=== PATIENT | female | born 1930 | race Caucasian/White ===

== ENCOUNTER 2019-07-03 15:11 | Inpatient (IN) | payer MEDICARE ==
[2019-07-03] MEDS: Atorvastatin Calcium 10 MG TAB PO SCH (20:37)
[2019-07-03] MEDS: cloNIDine 0.1 MG TAB PO SCH (20:37)
[2019-07-03] MEDS: Carvedilol 6.25 MG TAB PO SCH (20:37)
[2019-07-03] MEDS: Acetaminophen 325 MG TAB PO PRN (20:37)
[2019-07-04] MEDS: Acetaminophen 325 MG TAB PO PRN (02:56)
[2019-07-04 05:35] LABS: #Basophils 0.1 thou/uL (0.0-0.2); #Eosinphils 0.4 thou/uL (0.0-0.7); #Lymphocytes 1.5 thou/uL (1.20-3.40); #Monocytes 1.5 thou/uL (0.11-0.59); #Neutrophils 8.6 thou/uL (1.40-6.50); %Basophils 0.6 % (0.0-1.0); %Eosinophils 3.2 % (0.0-10.0); %Lymphocytes 12.3 % (21.0-51.0); %Monocytes 12.2 % (0.0-10.0); %Neutrophils 71.7 % (42.0-75.0); Hemoglobin 8.5 g/dL (12.0-16.0); Mean Corpuscular Hemoglobin 27.6 pg (27.0-31.0); Mean Corpuscular Volume 89.2 fL (78.0-98.0); Mean Platelet Volume 7.2 fL (7.4-10.4); Platelet Count 249 thou/uL (130-400); RBC Distribution Width 14.1 % (11.5-14.5); Red Blood Cell (RBC) Count 3.08 mill/uL (4.20-5.40)
[2019-07-04] MEDS: HYDROcodone/Acetaminophen 5/325 mg Tablet PO PRN ×4 (05:44→22:03)
[2019-07-04 05:49] LABS: ALT (SGPT) 13 U/L (8-55); AST (SGOT) 29 U/L (5-34); Albumin 2.8 g/dL (3.4-4.8); Alkaline Phosphatase 78 U/L (40-110); Anion Gap 13 mmol/L (10-20); BUN (Urea Nitrogen) 37 mg/dL (9.8-20.1); Bilirubin, Total 0.8 mg/dL (0.2-1.2); Calc. Creatinine Clearance 27 mL/min (70-130); Calcium 8.8 mg/dL (7.8-10.44); Carbon Dioxide 27 mmol/L (23-31); Chloride 100 mmol/L (98-107); Estimated GFR-MDRD 34; Globulin 2.8 g/dL (2.4-3.5); Glucose 108 mg/dL (83-110); Potassium 4.5 mmol/L (3.5-5.1); Protein, Total 5.6 g/dL (6.0-8.3); Sodium 135 mmol/L (136-145)
[2019-07-04] MEDS ORDERED: Levothyroxine Sodium 112 MCG TAB PO SCH (06:00)
[2019-07-04] MEDS ORDERED: Levothyroxine Sodium 25 MCG TAB PO SCH (06:00)
[2019-07-04] MEDS ORDERED: POLY IRON PO SCH (09:00)
[2019-07-04] MEDS: Calcium Carbonate 500 MG TAB PO SCH (09:30)
[2019-07-04] MEDS: Estradiol 1 MG TAB PO SCH (09:30)
[2019-07-04] MEDS: Carvedilol 6.25 MG TAB PO SCH ×3 (09:30→20:50)
[2019-07-04] MEDS: Senokot S 8.6-50 MG TAB PO SCH (09:31)
[2019-07-04] MEDS: Lisinopril 20 MG TAB PO SCH (09:32)
--- NOTE | 2019-07-04 11:48 | HP ---
Admitted to [facility] on the afternoon of 07/03/2019. CHIEF COMPLAINT: Weak following a fracture of her right hip and repair. HISTORY OF PRESENT ILLNESS: The patient is an 88-year-old white female, who resides at home with her granddaughter. She has been independent of her ADLs, but assisted by the granddaughter with medications and instrumental ADLs. The patient has a history of congestive heart failure, chronic atrial fibrillation, hypertension, and hypothyroidism. She is ambulatory prior to her recent fall. The patient had a fall at home with no loss of consciousness on 06/29/2019. She sustained a right subtrochanteric fracture of the hip and a left distal radial fracture, Colles type. The patient was admitted to the [facility]. On 2019, she underwent open reduction and internal fixation of the right hip fracture using a gamma nail and intramedullary rosalina. She also underwent a closed treatment of the left distal radial fracture by Dr. Maikel Wong. The patient's postop course has been unremarkable. She has been up in a wheelchair, but has not been ambulating. Her orthopedic surgeon said that she could weightbear as tolerated with right lower extremity and she is due to see Dr. Wong in followup. The patient was transferred to [facility] for purpose of physical therapy and occupational therapy on the late afternoon of 07/03/2019. The patient was seen early on the morning of 07/04/2019. She was sitting up in a wheelchair, eating her breakfast and she was able to tell me that she had had a fall and broke her hip and left arm. She knew she was in [place]. During the night, she had been given Tylenol for pain in that right hip, but it just did not control this. She had hydrocodone and acetaminophen 5/325 given, which she said worked well. PAST HISTORY: Hospitalized at [facility] from 2019 until 07/03/2019 for fall with subtrochanteric fracture of the right hip and closed fracture of the distal left radius, for which she underwent open reduction and internal fixation of the right hip, and closed treatment and casting of the left radial fracture. 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 The patient has had a pacemaker placed, cataract extraction and intraocular lens placement, previous fracture of the left hip and repair, hysterectomy with bilateral salpingo-oophorectomy. PRESENT MEDICINES: 1. Acetaminophen 325 mg two every 4 hours as needed. 2. Senokot-S one daily. 3. Atorvastatin 10 mg daily. 4. Os-Suman 500 mg daily. 5. Carvedilol 12.5 mg b.i.d., held if blood pressure systolic less than 100. 6. Clonidine 0.1 mg at night. 7. Pradaxa 75 mg b.i.d. 8. Estradiol 2 mg daily. 9. Levothyroxine 137 mcg daily. 10. Lisinopril 20 mg daily. 11. Pantoprazole 40 mg daily. 12. Vitamin C 250 mg daily. 13. Poly-Iron 150 Forte daily. ALLERGIES: IODINE. REVIEW OF SYSTEMS: GENERAL: The patient said she has not had any recent fever. She has had no change in her weight. HEAD AND NECK: No complaints, but blind in the left eye. PULMONARY: No complaint. CARDIOVASCULAR: No chest pain. GI: No nausea or vomiting. Bowels are moving fine. : No complaints. ADLS: Prior to her fall, the patient said she was able to manage her ADLs independently. HABITS: Alcohol, none. Tobacco, none. SOCIAL HISTORY: The patient lives with her granddaughter. The patient is a . PHYSICAL EXAMINATION: GENERAL: Shows a pleasant, 88-year-old, white female, who is sitting up in a wheelchair, eating her breakfast. She is alert, but sleepy and seemed to answer questions appropriately, knew she was in [facility]. VITAL SIGNS: Show a temperature of 97.7, pulse 62, respirations 20, O2 saturation 97% on room air, blood pressure 117/53. Her weight is 143. HEENT: Head, normocephalic. Eyes, pupils are round. She has no vision in the left eye. Sclerae are nonicteric. Ears, TMs are obscured by cerumen. Nose, normal. Mouth and throat, poor dentition. Mucous membranes are moist. NECK: Carotids have irregularly irregular rhythm. LUNGS: Clear. HEART: Irregularly irregular rhythm. CHEST: There is a pacemaker in the left upper anterior chest ABDOMEN: Soft. No organomegaly nor areas of tenderness. EXTREMITIES: No edema. The patient has a bandage over the right hip and distal lateral right upper leg that are dry. There is no drainage. The left wrist has a fiberglass cast, fits appropriately. There is no edema in the fingers. NEUROLOGIC: The patient is alert. Knows she is in the hospital, knows who she is , and knows her granddaughter takes care of her. She has generalized weakness with increase in the right lower extremity due to the fracture and some difficulty with the left arm due to the cast. Therapist said that she was a full assist with transfer from bed to the wheelchair. IMPRESSION: 1. Generalized weakness: a. Following a fall resulting in a right hip fracture and repair, and fracture of the left radius, for which she has a cast on. b. Prior to her fall, she was independent of her ADLs. 2. Subtrochanteric fracture of the right hip secondary to a fall on 06/28: a. Status post open reduction and internal fixation 06/29. b. Doing well, presently nonambulatory as of 07/03. 3. Closed fracture of the left distal radius: a. Secondary to a fall on 06/28. b. Managed in a fiberglass cast. 4. Chronic atrial fibrillation: a. On anticoagulant with Pradaxa. 5. Status post pacemaker placement. 6. History of congestive heart failure: a. No evidence of acute congestive failure as of 07/03. 7. Coronary artery disease: a. Presently asymptomatic. 8. Hypertension, controlled. 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 10. Anemia: a. Hemoglobin 8.5. Some of this is secondary to her recent fracture and surgical repair. 11. Hypothyroidism: a. TSH 10.3 as of 07/04/2019. PLAN: The patient has been admitted to [facility] for PT and OT in an effort to try to improve her general strength, her ability to ambulate, and general functional capability. Prior to her fall, she apparently was independent of her ADLs. The patient has eliud in the incisions on the right hip that will need to stay in 10 to 14 days. She will need to see Dr. Wong, her orthopedic surgeon in followup. Presently, she is allowed weightbearing as tolerated on that right hip. We will continue her routine medications. Her labs today showed a hemoglobin and hematocrit of 8.5 and 27.5, white cell count 12,000, with 72% segs, 12% lymphocytes, and platelet count of 249,000. Sodium 135, potassium 4.5, BUN 37, creatinine 1.45, with GFR of 34. TSH of 10.3. We will increase the patient's thyroid medicine to 150 mcg daily. CODE STATUS: Full code. Job ID: [id number] MTDD
[2019-07-04] MEDS: Atorvastatin Calcium 10 MG TAB PO SCH (20:50)
[2019-07-04] MEDS: cloNIDine 0.1 MG TAB PO SCH (20:50)
[2019-07-05] MEDS: HYDROcodone/Acetaminophen 5/325 mg Tablet PO PRN ×4 (02:26→21:38)
[2019-07-05] MEDS ORDERED: Levothyroxine Sodium 125 MCG TAB PO SCH (06:00)
[2019-07-05] MEDS: Levothyroxine Sodium 75 MCG TAB PO SCH (06:04)
[2019-07-05] MEDS: Calcium Carbonate 500 MG TAB PO SCH (09:14)
[2019-07-05] MEDS: Estradiol 1 MG TAB PO SCH (09:15)
[2019-07-05] MEDS: Carvedilol 6.25 MG TAB PO SCH ×2 (09:15→21:37)
[2019-07-05] MEDS: Senokot S 8.6-50 MG TAB PO SCH (09:16)
[2019-07-05] MEDS: Lisinopril 20 MG TAB PO SCH (09:16)
[2019-07-05 14:57] LABS: Bilirubin Negative (Negative); Blood, Urine Negative (Negative); Clarity Clear (Clear); Glucose, Urine (Dipstick) Negative (Negative); Leukocyte Negative (Negative); Nitrite Negative (Negative); Protein, Urine (Dipstick) Negative (Neg-Trace); Urobilinogen 0.2 mg/dL (Less than 2)
[2019-07-05 14:58] LABS: Urine Culture Reflex No No
[2019-07-05 15:07] LABS: RBC/HPF 0-3 HPF (0-3); WBC/HPF 0-3 HPF (0-3)
[2019-07-05 15:08] LABS: Bacteria/HPF Rare-Few HPF (None Seen)
[2019-07-05] MEDS ORDERED: Silver Sulfadiazine 1% Cream 50 GM TUBE TP PRN (19:42)
[2019-07-05] MEDS ORDERED: Mupirocin 2% Ointment 22 GM Tube TOP PRN (20:57)
[2019-07-05] MEDS ORDERED: Silver Sulfadiazine 1% Cream 50 GM TUBE TP SCH (21:00)
[2019-07-05] MEDS: Atorvastatin Calcium 10 MG TAB PO SCH (21:36)
[2019-07-05] MEDS: cloNIDine 0.1 MG TAB PO SCH (21:37)
[2019-07-05] MEDS: Mupirocin 2% Ointment 22 GM Tube TOP SCH (21:37)
[2019-07-06] MEDS: HYDROcodone/Acetaminophen 5/325 mg Tablet PO PRN ×4 (02:10→20:31)
[2019-07-06] MEDS: Levothyroxine Sodium 75 MCG TAB PO SCH (06:08)
[2019-07-06 06:12] LABS: Band 4 % (5-11); Eosinophils 5 % (0-10); Hypochromia SLIGHT = 6-15 cells (100X) (0-5/hpf); Lymphocytes 11 % (21-51); MDiff Complete? YES; Mean Corpuscular HGB CONC 31.3 g/dL (32.0-36.0); Mean Corpuscular Hemoglobin 28.2 pg (27.0-31.0); Mean Corpuscular Volume 90.1 fL (78.0-98.0); Mean Platelet Volume 6.8 fL (7.4-10.4); Monocytes 14 % (0-10); Neutrophil 66 % (42-75); Platelet Count 284 thou/uL (130-400); Platelet Morphology Comment Appears Adequate; RBC Distribution Width 14.5 % (11.5-14.5); Red Blood Cell (RBC) Count 2.82 mill/uL (4.20-5.40); Small Platelets SLIGHT; White Blood Cell (WBC) Count 12.4 thou/uL (4.8-10.8)
--- NOTE | 2019-07-06 07:03 | PRG ---
DATE OF SERVICE: 07/05/2019 SUBJECTIVE: The patient is sitting up in bed. She has finished her breakfast and she has been feeling pretty good. She at times has some pain, but the hydrocodone/acetaminophen is controlling this very well. OBJECTIVE: GENERAL: The patient is sitting up in bed, alert, talkative, smiling, appears comfortable, in no distress. VITAL SIGNS: Her vital signs show a temperature of 96.2, pulse 70, respirations 16, pulse is 70, blood pressure 117/53, and O2 saturation 97% on room air. LUNGS: Her lungs are clear. HEART: Has an irregularly irregular rhythm. EXTREMITIES: No edema. Dressings over the incisions, over the right hip and over the right lateral distal upper leg are dry. There is a dressing over a blistered area that had occurred in the right groin, but there is no drainage or surrounding redness. ASSESSMENT: 1. Generalized weakness. a. Following a fall resulting in a right hip fracture and repair and fracture of the left radius for which she is wearing a cast, that occurred on 06/28. b. Prior to her fall, she was independent of her ADLs. c. Improved, tolerating sitting up in bed and in bedside chair as of 07/04. 2. Subtrochanteric fracture of the right hip secondary to a fall on 06/28. a. Status post open reduction and internal fixation on 06/30/2019. b. Doing well as of 07/04. Still not ambulatory. 3. Closed fracture of the left distal radius. a. Secondary to a fall on 06/28. b. Managed in fiberglass cast. 4. Chronic atrial fibrillation. a. On chronic anticoagulation with Pradaxa. 5. Status post pacemaker placement. 6. History of congestive heart failure. a. No evidence of acute congestive heart failure as of 07/05/2019. 7. Coronary artery disease. a. Presently asymptomatic. 8. Hypertension. 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 10. Anemia. a. Hemoglobin 8.5 on 07/04/2019, secondary to recent fracture and surgical repair. 11. Hypothyroidism. PLAN: Continue present care. Continue PT and OT. Job ID: [id number] MTDD
[2019-07-06] MEDS ORDERED: Silver Sulfadiazine 1% Cream 50 GM TUBE TP SCH (09:00)
[2019-07-06] MEDS: Lisinopril 20 MG TAB PO SCH (09:38)
[2019-07-06] MEDS: Senokot S 8.6-50 MG TAB PO SCH (09:38)
[2019-07-06] MEDS: Estradiol 1 MG TAB PO SCH (09:38)
[2019-07-06] MEDS: Carvedilol 6.25 MG TAB PO SCH ×2 (09:38→20:31)
[2019-07-06] MEDS: Calcium Carbonate 500 MG TAB PO SCH (09:38)
[2019-07-06] MEDS: Mupirocin 2% Ointment 22 GM Tube TOP SCH ×3 (09:39→20:32)
[2019-07-06] MEDS: cloNIDine 0.1 MG TAB PO SCH (20:30)
[2019-07-06] MEDS: Atorvastatin Calcium 10 MG TAB PO SCH (20:31)
[2019-07-07] MEDS: Acetaminophen 325 MG TAB PO PRN ×3 (02:12→17:01)
[2019-07-07] MEDS: Levothyroxine Sodium 75 MCG TAB PO SCH (05:44)
[2019-07-07] MEDS: HYDROcodone/Acetaminophen 5/325 mg Tablet PO PRN (05:45)
--- NOTE | 2019-07-07 05:49 | PRG ---
DATE OF SERVICE: 07/06/2019 SUBJECTIVE: The patient had complained of soreness in the vulva area. The nurse had noticed a little ulceration in that area, and by the evening, the vulvar area was more swelled. Pictures were taken and these are reviewed and it showed about a centimeter and a half ulceration over the left lower labia majora and there was swelling over the labia majora bilaterally with some little superficial ulceration running transversely across the upper portions of the labia. There was no induration. There was bruising up into the thigh region. Ulceration was dressed with cleansing, application of Bactroban, and then the ulcer was covered with an Adaptic and gauze, and moist warm pack was applied and then a towel was used to help apply a little compression and elevation of the vulva and she was kept at bedrest. Now this morning on 07/05, she says she is better, the nurse says the swelling has gone way down and the whole area looks better. The patient's dressings over the incisions of the hip have been removed because the skin was irritating and blistering the skin. OBJECTIVE: GENERAL: The patient is alert, is talkative, appears in no distress , and she is smiling. VITAL SIGNS: Show a temperature of 98.4, pulse 80, respirations 18, O2 saturation 95% on room air, blood pressure 111/59. LUNGS: Clear. HEART: Regular rate. : In the vulva area, there is an ulceration over the skin crease between the left lower labia majora and the perineum that is about a centimeter and a half. There is no surrounding redness. The little transverse superficial ulcerations over the superior part of the labia majora look much better. The swelling has gone down to almost normal. There is bruising in the right upper leg and thigh from the recent fracture and surgery. The incisions are doing well, but there is bruising around the area and there is some tiny blistering that have ruptured and area is healing since the tape has been removed. LABORATORY DATA: Her lab this morning shows an H and H of 8 and 25.4, white cell count 12,400 with 66% segs, 4% bands, 11% lymphocytes, and a platelet count of 284,000. ASSESSMENT: 1. Generalized weakness. a. Following a fall resulting in a right hip fracture and open reduction and internal fixation and fracture of the left radius, for which she is managed with a cast that occurred on 06/28. b. Prior to her fall, she was independent of her ADLs. c. Stable as of 07/06/2019, but at bedrest due to some swelling in the vulva area. 2. Subtrochanteric fracture of the right hip secondary to fall on 06/28. a. Status post open reduction and internal fixation on 06/30/2019. b. Doing well. Had some reaction to the tape on the incisions that had been removed. Also, has a large degree of ecchymoses in the thigh from the fracture and surgery. 3. Closed fracture, left distal radius. a. Secondary to fall on 06/28. b. Managed with a fiberglass fitting cast that appears to be comfortable and well fitted as of 07/05. 4. Chronic atrial fibrillation. a. On chronic anticoagulant with Pradaxa. 5. Status post pacemaker placement. 6. History of congestive heart failure. a. No evidence of acute congestive heart failure as of 07/05. 7. Coronary artery disease. a. Asymptomatic. 8. Hypertension. 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 10. Anemia. a. Hemoglobin of 8.5 on 07/03. Hemoglobin 8.0 as of 07/05. 11. Hypothyroidism. 12. Ulceration to the left vulva with associated edema. a. Improved as of 07/05. PLAN: Probably tomorrow, the patient can resume getting up out of bed. For now , we will need to continue the Hernández catheter due to the urinary retention and also because of the ulceration of the vulva. The wound on the vulva would be cleansed daily, Bactroban ointment applied, and then this will be covered with an Adaptic and gauze. The superficial ulcerations over the upper portion of the labia majora and over the right medial thigh will be just covered with Bactroban twice the day. We will continue the moist heat to the vulva, which she said felt good and just compression with a folded towel and elevation of the vulva. Job ID: [id number] MTDD
[2019-07-07] MEDS ORDERED: traMADol HCl 50 MG TAB PO PRN (08:02)
--- NOTE | 2019-07-07 09:22 | PRG ---
DATE OF SERVICE: 07/07/2019 SUBJECTIVE: The patient says she is doing okay this morning. She said she rested pretty well. She had to have pain medicine, one hydrocodone 5/325 last evening and again around 5:00 this morning. The nurse had noticed that she seems to be mentally a little different and seeing things on the wall after she gets her medication. OBJECTIVE: GENERAL: The patient is lying in bed, alert, appears comfortable, in no distress. VITAL SIGNS: Her temp is 98.6, pulse 70, respirations 16, O2 saturation 97% on room air, blood pressure was 129/64, this is from the evening. Morning vitals pending. LUNGS: Clear. HEART: Has an irregularly irregular rhythm. EXTREMITIES: The right leg has some bruising around the proximal femur and groin area bruising. : The vulva area looks better. The edema has resolved. She has a Hernández catheter in place. The ulceration over the left labia is stable. A culture taken from that wound bed showed a few wbc's and epithelial cells and some gram-negative rods and gram-positive cocci. Final report pending. ASSESSMENT: 1. Generalized weakness. a. Following a fall resulting in a right hip fracture, for which she underwent open reduction and internal fixation and a fracture of the distal left radius that was cast secondary to a fall on 06/29/2019. b. Prior to the fall, she was independent of her ADLs. c. Stable as of 07/06. 2. Subtrochanteric fracture of the right hip secondary to fall on 06/28. a. Status post open reduction and internal fixation on 06/30/2019. b. Doing well. Has local swelling around the proximal femur and incision that extended some to the vulva that is stable as of 07/06. 3. Closed fracture of the left distal radius undisplaced. a. Secondary to a fall on 06/28. b. Managed with fiberglass cast. This cast seems to be appropriately placed with no evidence of any circulatory compromising comfortable as of 07/06. 4. Chronic atrial fibrillation, on chronic anticoagulation with Pradaxa. 5. Status post pacemaker placement. 6. History of congestive heart failure. a. No evidence of acute congestive heart failure as of 07/05. 7. Coronary artery disease. a. Asymptomatic. 8. Hypertension. 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 10. Anemia. a. Hemoglobin 8.5 on 07/03. Hemoglobin 8.0 on 07/05. 11. Hypothyroidism. 12. Ulcer to the left vulva with associated edema. a. The edema is improved. Ulcer stable as of 07/06. PLAN: The patient is having some confusion from the hydrocodone, we will stop this and utilize Tylenol as her primary pain source and then the tramadol 50 mg every 6 hours for moderate to severe pain. Continue local wound care. Resume letting the patient get up in a chair and physical therapy and OT working with her. Job ID: [id number] MTDD
[2019-07-07] MEDS: Lisinopril 20 MG TAB PO SCH (10:08)
[2019-07-07] MEDS: Estradiol 1 MG TAB PO SCH (10:08)
[2019-07-07] MEDS: Mupirocin 2% Ointment 22 GM Tube TOP SCH ×4 (10:09→20:54)
[2019-07-07] MEDS: Senokot S 8.6-50 MG TAB PO SCH (10:09)
[2019-07-07] MEDS: Calcium Carbonate 500 MG TAB PO SCH (10:09)
[2019-07-07] MEDS: Carvedilol 6.25 MG TAB PO SCH ×2 (10:12→20:54)
[2019-07-07] MEDS: Apixaban 5 MG TAB PO SCH ×2 (10:12→20:54)
[2019-07-07] MEDS ORDERED: traMADol HCl 50 MG TAB PO SCH (17:15)
[2019-07-07] MEDS: cloNIDine 0.1 MG TAB PO SCH (20:54)
[2019-07-07] MEDS: Atorvastatin Calcium 10 MG TAB PO SCH (20:54)
[2019-07-08] MEDS: Levothyroxine Sodium 75 MCG TAB PO SCH (05:23)
[2019-07-08] MEDS: traMADol HCl 50 MG TAB PO PRN ×2 (05:49→14:27)
[2019-07-08 05:57] LABS: #Basophils 0.1 thou/uL (0.0-0.2); #Eosinphils 0.5 thou/uL (0.0-0.7); #Lymphocytes 1.7 thou/uL (1.20-3.40); #Monocytes 1.5 thou/uL (0.11-0.59); #Neutrophils 11.3 thou/uL (1.40-6.50); %Basophils 0.8 % (0.0-1.0); %Eosinophils 3.4 % (0.0-10.0); %Lymphocytes 11.3 % (21.0-51.0); %Monocytes 10.1 % (0.0-10.0); %Neutrophils 74.4 % (42.0-75.0); Hemoglobin 8.8 g/dL (12.0-16.0); Mean Corpuscular HGB CONC 30.8 g/dL (32.0-36.0); Mean Corpuscular Hemoglobin 28.1 pg (27.0-31.0); Mean Corpuscular Volume 91.3 fL (78.0-98.0); Mean Platelet Volume 6.8 fL (7.4-10.4); Platelet Count 411 thou/uL (130-400); RBC Distribution Width 15.1 % (11.5-14.5); Red Blood Cell (RBC) Count 3.13 mill/uL (4.20-5.40); White Blood Cell (WBC) Count 15.2 thou/uL (4.8-10.8)
[2019-07-08 06:15] LABS: Anion Gap 14 mmol/L (10-20); BUN (Urea Nitrogen) 28 mg/dL (9.8-20.1); Calc. Creatinine Clearance 33 mL/min (70-130); Calcium 8.4 mg/dL (7.8-10.44); Carbon Dioxide 24 mmol/L (23-31); Chloride 103 mmol/L (98-107); Estimated GFR-MDRD 42; Glucose 87 mg/dL (83-110); Potassium 4.5 mmol/L (3.5-5.1); Sodium 136 mmol/L (136-145)
[2019-07-08] MEDS: Apixaban 5 MG TAB PO SCH ×2 (08:46→20:10)
[2019-07-08] MEDS: Senokot S 8.6-50 MG TAB PO SCH (08:47)
[2019-07-08] MEDS: Estradiol 1 MG TAB PO SCH (08:47)
[2019-07-08] MEDS: Carvedilol 6.25 MG TAB PO SCH ×2 (08:47→20:10)
[2019-07-08] MEDS: Calcium Carbonate 500 MG TAB PO SCH (08:47)
[2019-07-08] MEDS: Mupirocin 2% Ointment 22 GM Tube TOP SCH ×2 (08:48→20:10)
[2019-07-08] MEDS: Ferrous Sulfate 325 MG TAB PO SCH (08:48)
[2019-07-08] MEDS: Lisinopril 20 MG TAB PO SCH (08:48)
--- NOTE | 2019-07-08 11:34 | PRG ---
DATE OF SERVICE: 07/08/2019 SUBJECTIVE: The patient is doing better this morning. Occupational Therapy has her up, sitting on the side of the bed, fixing to help her walk in the room or transfer to the chair. She looks very comfortable. She said she is not hurting. OBJECTIVE: GENERAL: The patient looks much better. She is alert, talkative, appears in no distress. VITAL SIGNS: Her vital signs show a temperature of 98.4, pulse 93, respirations 16, O2 saturation 96% on room air, and blood pressure 187/73, earlier was 137/64. LUNGS: Clear. HEART: Irregularly irregular rhythm. EXTREMITIES: No edema. LABORATORY DATA: Her labs show an H and H of 8.8 and 28.6, white cell count 15, 200 with 74% segs, 11% lymphocytes, and a platelet count of 411. Sodium 136, potassium 4.5, her BUN has come down to 28, creatinine down to 1.2, FBS 87. Final culture results from the wound are still pending. There is a gram-negative rosalina growing, suspect though this will just represent a colonization of the wound. ASSESSMENT: 1. Generalized weakness. a. Following a fall resulting in a right hip fracture, for which she underwent open reduction and internal fixation of a fracture of the left distal radius , managed with a cast from a fall on 06/28. b. Prior to the fall, she was independent of her ADLs. c. Improved, tolerates sitting up in a chair and walking very short distances within her room as of 07/07. 2. Subtrochanteric fracture of the right hip secondary to fall on 06/28. a. Status post open reduction and internal fixation on 06/30/2019. b. Doing well. Local swelling around the proximal right upper leg incision involve, continues to improve as of 07/07. 3. Closed fracture of the distal radius, undisplaced;. a. Secondary to fall on 06/28. b. Managed with fiberglass cast that is fitting appropriately as of 07/07. 4. Chronic atrial fibrillation, on chronic anticoagulation with Eliquis. 5. Status post pacemaker placement. 6. History of congestive heart failure. a. No evidence of acute congestive heart failure as of 07/07. 7. Coronary artery disease. a. Asymptomatic. 8. Hypertension. 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 10. Anemia. a. Hemoglobin improved to 8.8 as of 07/07. 11. Hypothyroidism. 12. Ulcer of the left vulva with associated edema. a. Edema is resolving. b. Ulcer, gradually improving as of 07/07. PLAN: The patient was having a little trouble swallowing and her Speech Therapy has had recommended crushing medicines. Pradaxa is a capsule and could not be and given. She was switched to Eliquis. Pharmacy will help watch this and modify the dosage based on her renal function. Her pain seemed to be well controlled. Physical Therapy and Occupational Therapy are working with her and will continue this. Job ID: [id number] MTDD
[2019-07-08] MEDS: Acetaminophen 325 MG TAB PO PRN (14:27)
[2019-07-08] MEDS: Atorvastatin Calcium 10 MG TAB PO SCH (20:10)
[2019-07-08] MEDS: cloNIDine 0.1 MG TAB PO SCH (20:10)
[2019-07-09] MEDS: Acetaminophen 325 MG TAB PO PRN ×4 (02:14→21:06)
[2019-07-09] MEDS: traMADol HCl 50 MG TAB PO PRN ×4 (02:15→21:06)
[2019-07-09] MEDS: Levothyroxine Sodium 75 MCG TAB PO SCH (05:00)
[2019-07-09] MEDS: Estradiol 1 MG TAB PO SCH (08:26)
[2019-07-09] MEDS: Lisinopril 20 MG TAB PO SCH (08:26)
[2019-07-09] MEDS: Apixaban 5 MG TAB PO SCH ×2 (08:26→20:10)
[2019-07-09] MEDS: Calcium Carbonate 500 MG TAB PO SCH (08:26)
[2019-07-09] MEDS: Mupirocin 2% Ointment 22 GM Tube TOP SCH ×2 (08:27→20:12)
[2019-07-09] MEDS: Carvedilol 6.25 MG TAB PO SCH ×2 (08:27→20:09)
[2019-07-09] MEDS: Senokot S 8.6-50 MG TAB PO SCH (08:27)
[2019-07-09] MEDS: Ferrous Sulfate 325 MG TAB PO SCH (08:27)
[2019-07-09] MEDS: Atorvastatin Calcium 10 MG TAB PO SCH (20:08)
[2019-07-09] MEDS: cloNIDine 0.1 MG TAB PO SCH (20:11)
[2019-07-10] MEDS: traMADol HCl 50 MG TAB PO PRN ×3 (03:08→20:55)
[2019-07-10] MEDS: Levothyroxine Sodium 75 MCG TAB PO SCH (05:42)
[2019-07-10] MEDS: Apixaban 5 MG TAB PO SCH ×2 (09:42→20:54)
[2019-07-10] MEDS: Calcium Carbonate 500 MG TAB PO SCH (09:42)
[2019-07-10] MEDS: Lisinopril 20 MG TAB PO SCH (09:42)
[2019-07-10] MEDS: Senokot S 8.6-50 MG TAB PO SCH (09:43)
[2019-07-10] MEDS: Estradiol 1 MG TAB PO SCH (09:43)
[2019-07-10] MEDS: Carvedilol 6.25 MG TAB PO SCH ×2 (09:43→20:54)
[2019-07-10] MEDS: Ferrous Sulfate 325 MG TAB PO SCH (09:44)
[2019-07-10] MEDS: Mupirocin 2% Ointment 22 GM Tube TOP SCH ×2 (09:44→20:55)
--- NOTE | 2019-07-10 12:28 | PRG ---
DATE OF SERVICE: 07/10/2019 SUBJECTIVE: The patient says she is doing okay. She is just still sore. She is using the Tylenol and the tramadol as needed. Physical Therapy said she has been up in a chair. She has been taking a few steps in the room using a walker and the platform for her arm and seems to be tolerating this. OBJECTIVE: GENERAL: The patient is lying in bed, alert, appears in no acute distress. VITAL SIGNS: Her temperature is 98.1, pulse 69, respirations 18, O2 saturation 97% on room air, and blood pressure 132/62. LUNGS: Clear. HEART: Has an irregularly irregular rhythm. EXTREMITIES: Bruising over the right proximal leg is decreasing. The incisions are healing. GENITOURINARY: The vulva edema is resolved. ASSESSMENT: 1. Generalized weakness. a. Following a fall resulting in a right hip fracture, for which she underwent an open reduction and internal fixation and a fracture of the left distal radius managed with a cast from a fall on 06/28. b. Prior to the fall, she was independent of her ADLs. c. Improving. Tolerating sitting up in a chair, walking up to 10 feet in her room with platform walker as of 07/09. 2. Subtrochanteric fracture of the right hip secondary to a fall on 06/28. a. Status post open reduction and internal fixation on 06/30/2019. b. Improving as of 07/09. 3. Closed fracture of the distal radius, undisplaced. a. Secondary to fall on 06/28. b. Managed with a fiberglass cast that is well fitting as of 07/09. 4. Chronic atrial fibrillation. a. Rate control. b. On chronic anticoagulation with Eliquis. 5. Status post pacemaker placement. 6. History of congestive heart failure. a. No evidence of acute congestive heart failure. 7. Coronary artery disease. a. Asymptomatic. 8. Hypertension, controlled. 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 10. Anemia. a. Hemoglobin improved to 8.8 on 07/07. 11. Hypothyroidism. 12. Ulcer of the left vulva. a. Slowly improving. PLAN: Continue present care. Continue PT and OT. We will continue the Hernández catheter until her ulcer is better. Job ID: [id number] [facility]
[2019-07-10] MEDS: Acetaminophen 325 MG TAB PO PRN (16:16)
[2019-07-10] MEDS: cloNIDine 0.1 MG TAB PO SCH (20:54)
[2019-07-10] MEDS: Atorvastatin Calcium 10 MG TAB PO SCH (20:54)
[2019-07-11] MEDS: Levothyroxine Sodium 75 MCG TAB PO SCH (05:18)
[2019-07-11] MEDS: traMADol HCl 50 MG TAB PO PRN ×3 (05:19→20:08)
[2019-07-11] MEDS: Estradiol 1 MG TAB PO SCH (08:41)
[2019-07-11] MEDS: Ferrous Sulfate 325 MG TAB PO SCH (08:41)
[2019-07-11] MEDS: Calcium Carbonate 500 MG TAB PO SCH (08:41)
[2019-07-11] MEDS: Carvedilol 6.25 MG TAB PO SCH ×2 (08:41→20:07)
[2019-07-11] MEDS: Apixaban 5 MG TAB PO SCH ×2 (08:42→20:07)
[2019-07-11] MEDS: Lisinopril 20 MG TAB PO SCH (08:42)
[2019-07-11] MEDS: Senokot S 8.6-50 MG TAB PO SCH (08:42)
[2019-07-11] MEDS: Mupirocin 2% Ointment 22 GM Tube TOP SCH ×2 (08:42→20:07)
--- NOTE | 2019-07-11 10:46 | PRG ---
DATE OF SERVICE: 07/11/2019 SUBJECTIVE: The patient says she is okay this morning. Therapist said that she is walking up to 16 feet with her platform walker. She is in Physical Therapy room , working on a NuStep, which works her legs and her arms. The nurse reports that the ulceration on the left vulva looks much better, is drying up. OBJECTIVE: GENERAL: The patient is sitting on the NuStep. She is alert, appears comfortable, in no distress. VITAL SIGNS: Her temp is 97.4, pulse 82, respirations 18, O2 saturation 97% on room air, blood pressure 136/63. Her weight is 137. Output was 625. LUNGS: Clear. HEART: Irregularly irregular rhythm. ASSESSMENT: 1. Generalized weakness. a. Following a fall resulting in a right hip fracture and fracture of the left distal radius on 06/28. b. Prior to fall, the patient was independent of her ADLs. c. Improving. Tolerating walking up to 16 feet, and working out on a NuStep as of 07/10. 2. Subtrochanteric fracture of the right hip secondary to a fall on 06/28. a. Status post open reduction and internal fixation on 06/30/2019. b. Continue to improve edema of the right proximal upper leg, diminishing as of 07/11/2019. 3. Closed fracture of the distal radius, undisplaced. a. Secondary to a fall on 06/28. b. Managed with fiberglass cast that fits appropriately as of 07/10. 4. Chronic atrial fibrillation. a. Rate controlled. b. On chronic anticoagulation with Eliquis. 5. Status post pacemaker placement. 6. History of congestive heart failure. a. No evidence of acute CHF. 7. Coronary heart disease. a. Asymptomatic. 8. Hypertension, controlled. 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 10. Anemia. a. Hemoglobin 8.8 on 07/07. 11. Hypothyroidism. 12. Ulcer on the left vulva, gradually improving. PLAN: Continue present care. Continue PT and OT. We will try to leave the catheter in for another day or two and then discontinue. This will give a little more time for healing of the vulvar ulcer. Job ID: [id number] [facility]
[2019-07-11] MEDS: Bisacodyl 5 MG TAB PO PRN (12:55)
[2019-07-11] MEDS: cloNIDine 0.1 MG TAB PO SCH (20:07)
[2019-07-11] MEDS: Atorvastatin Calcium 10 MG TAB PO SCH (20:07)
[2019-07-12] MEDS: Acetaminophen 325 MG TAB PO PRN ×2 (00:17→10:06)
[2019-07-12] MEDS: traMADol HCl 50 MG TAB PO PRN ×2 (04:14→10:06)
[2019-07-12] MEDS: Levothyroxine Sodium 75 MCG TAB PO SCH (05:39)
[2019-07-12] MEDS: Lisinopril 20 MG TAB PO SCH (08:53)
[2019-07-12] MEDS: Ferrous Sulfate 325 MG TAB PO SCH (08:53)
[2019-07-12] MEDS: Apixaban 5 MG TAB PO SCH ×2 (08:53→22:03)
[2019-07-12] MEDS: Senokot S 8.6-50 MG TAB PO SCH (08:53)
[2019-07-12] MEDS: Estradiol 1 MG TAB PO SCH (08:53)
[2019-07-12] MEDS: Carvedilol 6.25 MG TAB PO SCH ×2 (08:53→22:03)
[2019-07-12] MEDS: Calcium Carbonate 500 MG TAB PO SCH (08:54)
[2019-07-12] MEDS: Mupirocin 2% Ointment 22 GM Tube TOP SCH ×2 (08:56→22:04)
[2019-07-12] MEDS ORDERED: Sodium Chloride Irrig Solution 250 ML BOT ONE (12:55)
[2019-07-12] MEDS ORDERED: traMADol HCl 50 MG TAB PO SCH (15:15)
[2019-07-12] MEDS: Atorvastatin Calcium 10 MG TAB PO SCH (22:03)
[2019-07-12] MEDS: cloNIDine 0.1 MG TAB PO SCH (22:03)
--- NOTE | 2019-07-13 05:18 | PRG ---
DATE OF SERVICE: 07/12/2019 SUBJECTIVE: The patient says she is doing okay this morning. Sometimes she still has pain in the right hip. Her left arm is feeling good. Nurse said that the ulcer on the left vulva is doing better. OBJECTIVE: GENERAL: The patient is sitting up in bed, alert, talkative, appears comfortable, in no distress. VITAL SIGNS: Shows a temperature of 97.5, pulse 82, respirations 16, O2 saturation 98% on room air, blood pressure 136/63. LUNGS: Clear. HEART: Irregular irregular rhythm. EXTREMITIES: No edema. Bruise around the upper right leg is improving. ASSESSMENT: 1. Generalized weakness. a. Following a fall resulting in right hip fracture and fracture of the left distal radius on 06/28. b. Prior to fall, patient was independent of all her ADLs. c. Improving. Tolerating walking up to 16 feet and also gently working out on a NuStep as of 07/10. 2. Subtrochanteric fracture of the right hip secondary to a fall on 06/28. a. Status post open reduction and internal fixation on 06/30/2019. b. Continued improvement as of 07/11. 3. Closed fracture of the distal radius and displaced. a. Secondary to fall on 06/28. b. Managed with fiberglass cast and fits appropriately as of 07/11. 4. Chronic atrial fibrillation. a. Rate control. b. On chronic anticoagulation with Eliquis. 5. Status post pacemaker placement. 6. History of congestive heart failure. a. No evidence of acute congestive heart failure. 7. Coronary heart disease, asymptomatic. a. Hypertension, controlled. 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 9. Anemia. a. Hemoglobin 8.8 on 07/07. 10. Hypothyroidism. 11. Ulcer on the left vulva. Continues to improve as of 07/11. PLAN: Continue present care. Continue PT/OT. After a couple more days, I feel like we will be able to remove her catheter. Job ID: [id number] [facility]
[2019-07-13] MEDS: traMADol HCl 50 MG TAB PO PRN ×3 (05:46→14:34)
[2019-07-13] MEDS: Levothyroxine Sodium 75 MCG TAB PO SCH (05:47)
[2019-07-13] MEDS: Senokot S 8.6-50 MG TAB PO SCH (08:36)
[2019-07-13] MEDS: Lisinopril 20 MG TAB PO SCH (08:36)
[2019-07-13] MEDS: Carvedilol 6.25 MG TAB PO SCH ×2 (08:36→20:10)
[2019-07-13] MEDS: Estradiol 1 MG TAB PO SCH (08:36)
[2019-07-13] MEDS: Calcium Carbonate 500 MG TAB PO SCH (08:36)
[2019-07-13] MEDS: Apixaban 5 MG TAB PO SCH ×2 (08:37→20:09)
[2019-07-13] MEDS: Ferrous Sulfate 325 MG TAB PO SCH (08:37)
[2019-07-13] MEDS: Mupirocin 2% Ointment 22 GM Tube TOP SCH ×2 (08:37→19:55)
[2019-07-13] MEDS ORDERED: traMADol HCl 50 MG TAB PO SCH (09:00)
[2019-07-13] MEDS: Acetaminophen 325 MG TAB PO PRN (19:53)
[2019-07-13] MEDS: Atorvastatin Calcium 10 MG TAB PO SCH (20:10)
[2019-07-13] MEDS: cloNIDine 0.1 MG TAB PO SCH (20:10)
[2019-07-14] MEDS: traMADol HCl 50 MG TAB PO PRN ×2 (04:17→14:44)
[2019-07-14 04:20] LABS: Bilirubin Negative (Negative); Blood, Urine Trace (Negative); Clarity Clear (Clear); Glucose, Urine (Dipstick) Negative (Negative); Leukocyte Small (Negative); Nitrite Negative (Negative); Protein, Urine (Dipstick) Negative (Neg-Trace); Urobilinogen 0.2 mg/dL (Less than 2)
[2019-07-14 04:25] LABS: Bacteria/HPF 1+ HPF (None Seen); Squamous Epithelial 0-3 HPF (0-3); WBC/HPF 21-50 HPF (0-3)
[2019-07-14 04:26] LABS: Urine Culture Reflex Yes Yes
[2019-07-14 05:29] LABS: Hemoglobin 8.1 g/dL (12.0-16.0); Platelet Count 534 thou/uL (130-400)
[2019-07-14] MEDS: Levothyroxine Sodium 75 MCG TAB PO SCH (05:52)
[2019-07-14] MEDS: Mupirocin 2% Ointment 22 GM Tube TOP SCH ×3 (09:00→21:19)
[2019-07-14] MEDS: Ferrous Sulfate 325 MG TAB PO SCH (09:06)
[2019-07-14] MEDS: Estradiol 1 MG TAB PO SCH (09:06)
[2019-07-14] MEDS: Apixaban 5 MG TAB PO SCH ×2 (09:06→21:17)
[2019-07-14] MEDS: Carvedilol 6.25 MG TAB PO SCH ×3 (09:07→21:24)
[2019-07-14] MEDS: Calcium Carbonate 500 MG TAB PO SCH (09:07)
[2019-07-14] MEDS: Senokot S 8.6-50 MG TAB PO SCH (09:07)
[2019-07-14] MEDS: Lisinopril 20 MG TAB PO SCH (09:08)
--- NOTE | 2019-07-14 10:51 | PRG ---
DATE OF SERVICE: 07/14/2019 SUBJECTIVE: The patient is up in her bedside chair, preparing to eat breakfast. She says she is feeling better. Yesterday, her catheter in the bladder was not draining as well, looked like it had developed a lot of sedimentation. Her ulceration of the vulva has improved. We thought we could give her a trial without the catheter. The catheter was removed. She voided a couple of times, but each time her urinary retention increased on bladder scan. Last time after voiding, she had a 400 mL residual. Hernández catheter was replaced. OBJECTIVE: GENERAL: The patient is alert, appears comfortable, in no distress. VITAL SIGNS: Her temperature is 98.5, pulse 76, respirations 18, O2 saturation 100% on room air, and blood pressure 123/58. LUNGS: Clear. HEART: Irregularly irregular rhythm. EXTREMITIES: No edema. ASSESSMENT: 1. Generalized weakness. a. Following a fall resulting in a right hip fracture and fracture of the left distal radius on 06/28. b. Prior to the fall, the patient was independent of all her ADLs. c. Improving. Tolerating walking a little further using a platform walker as of 07/13. 2. Subtrochanteric fracture of the right hip secondary to a fall on 06/28. a. Status post open reduction and internal fixation on 06/30/2019. b. Continued improvement as of 07/13. 3. Closed fracture of the distal left radius, undisplaced. a. Secondary to fall on 06/28. b. Managed with fiberglass cast that fits appropriately as of 07/13. 4. Chronic atrial fibrillation. a. Rate control. b. On chronic anticoagulation with Eliquis. 5. Status post pacemaker placement. 6. History of congestive heart failure. a. No evidence of acute congestive heart failure. 7. Coronary artery disease. Asymptomatic. 8. Hypertension, controlled. 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 10. Anemia. a. Hemoglobin 8.8 on 07/07. 11. Hypothyroidism. 12. Ulcer on the left vulva. Continue to improve as of 07/13. 13. Urinary retention, requiring indwelling Hernández catheter. a. Catheter was removed, but the patient had significant residual postvoid as of 07/13/2019. PLAN: Continue present care. Job ID: [id number] [facility]
[2019-07-14] MEDS: Acetaminophen 325 MG TAB PO PRN (19:18)
[2019-07-14] MEDS: cloNIDine 0.1 MG TAB PO SCH (21:17)
[2019-07-14] MEDS: Atorvastatin Calcium 10 MG TAB PO SCH (21:17)
[2019-07-14] MEDS ORDERED: Phenazopyridine HCl 97.5 MG TABLET PO SCH (22:45)
[2019-07-14] MEDS: Acetaminophen 500 MG TAB PO PRN (23:32)
[2019-07-15] MEDS: Levothyroxine Sodium 75 MCG TAB PO SCH (05:40)
[2019-07-15] MEDS: Phenazopyridine HCl 97.5 MG TABLET PO SCH ×3 (05:41→21:25)
[2019-07-15] MEDS: Estradiol 1 MG TAB PO SCH (08:12)
[2019-07-15] MEDS: Lisinopril 20 MG TAB PO SCH (08:12)
[2019-07-15] MEDS: Bisacodyl 5 MG TAB PO PRN (08:12)
[2019-07-15] MEDS: Ferrous Sulfate 325 MG TAB PO SCH (08:12)
[2019-07-15] MEDS: Senokot S 8.6-50 MG TAB PO SCH (08:13)
[2019-07-15] MEDS: Calcium Carbonate 500 MG TAB PO SCH (08:13)
[2019-07-15] MEDS: Apixaban 5 MG TAB PO SCH ×2 (08:13→21:26)
[2019-07-15] MEDS: Mupirocin 2% Ointment 22 GM Tube TOP SCH ×2 (08:13→21:32)
[2019-07-15] MEDS: Carvedilol 6.25 MG TAB PO SCH ×2 (08:13→21:27)
[2019-07-15] MEDS: Acetaminophen 500 MG TAB PO PRN ×3 (08:30→21:25)
[2019-07-15 09:19] LABS: ALT (SGPT) 12 U/L (8-55); AST (SGOT) 19 U/L (5-34); Albumin 3.3 g/dL (3.4-4.8); Alkaline Phosphatase 189 U/L (40-110); Anion Gap 14 mmol/L (10-20); BUN (Urea Nitrogen) 17 mg/dL (9.8-20.1); Calc. Creatinine Clearance 30 mL/min (70-130); Calcium 8.7 mg/dL (7.8-10.44); Carbon Dioxide 21 mmol/L (23-31); Chloride 100 mmol/L (98-107); Estimated GFR-MDRD 40; Globulin 3.7 g/dL (2.4-3.5); Glucose 118 mg/dL (83-110); Potassium 4.5 mmol/L (3.5-5.1); Sodium 130 mmol/L (136-145)
--- NOTE | 2019-07-15 10:44 | PRG ---
DATE OF SERVICE: 07/15/2019 SUBJECTIVE: The patient had developed a little bit more confusion on the tramadol last night. This was stopped. She was uncomfortable. She was switched to Tylenol 500 mg two every 6 hours as needed. Also, she was complaining of pain in the lower abdomen that was felt to be from bladder spasms and she was started on Pyridium. She was using moist heat over the area of soreness and she seemed to get very comfortable. This morning, she has been free of any pain. Dietitian has said she is not eating very well. Has lost a little weight since she has been here. Some of this weight loss is probably from mobilization of the swelling and bruising in the leg from the fracture and surgical repair. Her diet has been modified to a regular pureed diet. Speech Therapy will re-evaluate her needs for consistency of her food. OBJECTIVE: GENERAL: The patient is sitting on the edge of the bed. Occupational Therapy is fixing to help her up into a chair for breakfast. She looks better. She is smiling and had been joking with the nursing staff. She does not appear in any acute distress. VITAL SIGNS: Her temp is 96.4, pulse 71, respirations 18, O2 saturation 100% on room air, blood pressure 176/74. LUNGS: Clear. HEART: Irregularly irregular rhythm. Bruising in the right leg is diminishing. The leg has less edema, overall looks good. Her edema of the leg is diminishing. : The ulceration on the left vulva also is improving. ASSESSMENT: 1. Generalized weakness. a. Following a fall resulting in a right hip fracture and repair and fracture of the left distal radius on 06/28. b. Prior to the fall, the patient was independent of all of her ADLs. c. Gradually improving. Walking a little bit further with a platform walker as of 07/14. 2. Subtrochanteric fracture of the right hip secondary to a fall on 06/28. a. Status post open reduction and internal fixation on 06/30/2019. b. Continued improvement as of 07/14. 3. Closed fracture of the distal left radius undisplaced. a. Secondary to a fall on 06/28. b. Managed with a fiberglass cast that is fitting appropriately as of 07/14. 4. Chronic atrial fibrillation. a. Rate control. b. On chronic anticoagulation with Eliquis. 5. Status post pacemaker placement. 6. History of congestive heart failure. a. No evidence of acute congestive heart failure. 7. Coronary artery disease. Asymptomatic. 8. Hypertension. 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 10. Anemia. a. Hemoglobin 8.8 on 07/07. 11. Hypothyroidism. 12. Ulcer on the left vulva. Continue to improve as of 07/14. 13. Urinary retention, requiring indwelling Hernández catheter. a. Catheter was removed. The patient had significant residual postvoid and required replacement of the catheter on 07/13/2019. b. Had some bladder spasm for which she was started on Pyridium. PLAN: Continue present care. Continue PT and OT. We will switch to regular diet, pureed. Have Speech Therapy re-evaluate, see if there is still a need for the pureed diet. Job ID: [id number] [facility]TDD
[2019-07-15] MEDS ORDERED: Bisacodyl 10 MG SUPP PR PRN (20:24)
[2019-07-15] MEDS ORDERED: Milk Of Magnesia 30 ML UDCUP PO PRN (20:50)
[2019-07-15] MEDS ORDERED: Polyethylene Glycol 3350 17 GM Packet PO SCH (21:00)
[2019-07-15] MEDS: Atorvastatin Calcium 10 MG TAB PO SCH (21:26)
[2019-07-15] MEDS: cloNIDine 0.1 MG TAB PO SCH (21:26)
[2019-07-16] MEDS: Acetaminophen 500 MG TAB PO PRN ×3 (02:35→15:57)
[2019-07-16] MEDS: Phenazopyridine HCl 97.5 MG TABLET PO SCH ×3 (05:33→21:03)
[2019-07-16] MEDS: Levothyroxine Sodium 75 MCG TAB PO SCH (05:33)
[2019-07-16 05:44] LABS: #Basophils 0.1 thou/uL (0.0-0.2); #Eosinphils 0.3 thou/uL (0.0-0.7); #Lymphocytes 1.5 thou/uL (1.20-3.40); #Monocytes 1.2 thou/uL (0.11-0.59); #Neutrophils 5.6 thou/uL (1.40-6.50); %Basophils 1.2 % (0.0-1.0); %Eosinophils 3.5 % (0.0-10.0); %Lymphocytes 17.7 % (21.0-51.0); %Monocytes 13.3 % (0.0-10.0); %Neutrophils 64.3 % (42.0-75.0); Hemoglobin 8.1 g/dL (12.0-16.0); Mean Corpuscular HGB CONC 30.9 g/dL (32.0-36.0); Mean Corpuscular Hemoglobin 28.3 pg (27.0-31.0); Mean Corpuscular Volume 91.5 fL (78.0-98.0); Mean Platelet Volume 6.3 fL (7.4-10.4); Platelet Count 497 thou/uL (130-400); RBC Distribution Width 15.6 % (11.5-14.5); Red Blood Cell (RBC) Count 2.86 mill/uL (4.20-5.40); White Blood Cell (WBC) Count 8.6 thou/uL (4.8-10.8)
[2019-07-16] MEDS ORDERED: Mag-Al Plus 1200 MG/1200 MG/120 MG/30 ML UDCUP PO PRN (08:43)
[2019-07-16] MEDS ORDERED: Polyethylene Glycol 3350 17 GM Packet PO SCH (09:00)
[2019-07-16] MEDS: Apixaban 5 MG TAB PO SCH ×2 (09:50→20:15)
[2019-07-16] MEDS: Estradiol 1 MG TAB PO SCH (09:50)
[2019-07-16] MEDS: Carvedilol 6.25 MG TAB PO SCH ×2 (09:50→20:15)
[2019-07-16] MEDS: Senokot S 8.6-50 MG TAB PO SCH (09:51)
[2019-07-16] MEDS: Ferrous Sulfate 325 MG TAB PO SCH (09:51)
[2019-07-16] MEDS: Lisinopril 20 MG TAB PO SCH (09:57)
--- NOTE | 2019-07-16 11:34 | PRG ---
DATE OF SERVICE: 07/16/2019 SUBJECTIVE: Last night, the nurses called me because the patient had been constipated. She was started on MiraLAX. She is also on Senokot S in the mornings and she has order for Dulcolax suppository if needed. Last night after the MiraLAX, she has had a good bowel movement and she asked to hold the MiraLAX this morning. The patient is overall feeling better. The swelling in the leg and bruising is much improved. The incisions are doing much better. These have been Steri-Stripped. There are no eliud or sutures. OBJECTIVE: GENERAL: The patient is sitting up on the bedside commode. She is alert and appears comfortable, in no distress. VITAL SIGNS: Show a temperature 98.1, pulse 74, respirations 16, O2 saturation 98% on room air. Her blood pressure is 157/73. LUNGS: Clear. HEART: Irregularly irregular rhythm. EXTREMITIES: Right leg bruising is diminishing. Nurses report the ulcer on the left vulva continues to improve. LABORATORY DATA: H and H 8.1 and 26.2, white blood cell count 8600 with 64% segs, 18% lymphocytes, and platelet count of 497,000. Sodium 130, potassium 4.5, BUN 17, creatinine 1.27. FBS 118. Albumin 3.3. Urine shows 21 to 50 WBCs. Nitrite negative. ASSESSMENT: 1. Generalized weakness. a. Following a fall resulting in right hip fracture and repair and fracture of the left distal radius on 06/28. b. Prior to the fall, the patient was independent of all her ADLs. c. Gradually improving. Walking up to 22 feet with a platform walker as of 07/15. 2. Subtrochanteric fracture of the right hip secondary to a fall on 06/28. a. Status post open reduction and internal fixation on 06/30/2019. b. Continued improvement. Walking up to 22 feet as of 07/15. 3. Closed undisplaced fracture of the left distal radius. a. Secondary to a fall on 06/28. b. Managed with fiberglass cast that is appropriately fitting as of 07/15. 4. Chronic atrial fibrillation. a. Rate controlled. b. On chronic anticoagulation with Eliquis. 5. Status post pacemaker placement. 6. History of congestive heart failure. a. No evidence of acute congestive heart failure. 7. Coronary artery disease, asymptomatic. 8. Hypertension. 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 10. Anemia. a. Hemoglobin 8.8, on 07/07. b. Hemoglobin 8.1 on 07/15. 11. Hypothyroidism. 12. Ulcer of the left vulva. Continues to improve as of 07/15. 13. Urinary retention, requiring indwelling Hernández catheter. a. Catheter was removed and had to be replaced due to retention on 2019. b. Bladder spasms controlled on the Pyridium. PLAN: Continue present care. Will use MiraLAX p.r.n. Continue PT and OT. Job ID: [id number] [facility]TDD
[2019-07-16] MEDS: Calcium Carbonate 500 MG TAB PO SCH (11:38)
[2019-07-16] MEDS: Mupirocin 2% Ointment 22 GM Tube TOP SCH ×2 (12:51→20:17)
[2019-07-16] MEDS: Acetaminophen/Codeine 30-300mg Tablet PO PRN (17:14)
[2019-07-16] MEDS: cloNIDine 0.1 MG TAB PO SCH (20:15)
[2019-07-16] MEDS: Atorvastatin Calcium 10 MG TAB PO SCH (20:15)
[2019-07-17] MEDS: Acetaminophen/Codeine 30-300mg Tablet PO PRN ×3 (04:57→18:03)
[2019-07-17] MEDS: Phenazopyridine HCl 97.5 MG TABLET PO SCH ×3 (04:59→20:59)
[2019-07-17] MEDS: Levothyroxine Sodium 75 MCG TAB PO SCH (04:59)
[2019-07-17] MEDS: Estradiol 1 MG TAB PO SCH (08:26)
[2019-07-17] MEDS: Ferrous Sulfate 325 MG TAB PO SCH (08:26)
[2019-07-17] MEDS: Calcium Carbonate 500 MG TAB PO SCH (08:26)
[2019-07-17] MEDS: Carvedilol 6.25 MG TAB PO SCH ×2 (08:26→20:57)
[2019-07-17] MEDS: Lisinopril 20 MG TAB PO SCH (08:26)
[2019-07-17] MEDS: Apixaban 5 MG TAB PO SCH ×2 (08:26→20:57)
[2019-07-17] MEDS: Senokot S 8.6-50 MG TAB PO SCH (08:27)
[2019-07-17] MEDS: Mupirocin 2% Ointment 22 GM Tube TOP SCH ×2 (08:32→20:57)
--- NOTE | 2019-07-17 10:46 | PRG ---
DATE OF SERVICE: 07/17/2019 SUBJECTIVE: Yesterday afternoon, patient just very uncomfortable. The Tylenol, attempts at heat application and ice application just did not seem to get her comfortable. Tried her on Tylenol No. 3 one tablet and this seemed to work very well. This was repeated around 5 o'clock this morning and she has been comfortable. She has been up in her chair and smiling and not complaining of pain. OBJECTIVE: GENERAL: The patient is sitting up in her chair, eating her breakfast. She is smiling and says she feels a lot better. She said she had a bad night, but now is feeling much better, not hurting. VITAL SIGNS: Her temperature is 99.6, pulse 83, respirations 16, O2 saturation 95% on room air, blood pressure 142/71. LUNGS: Clear. HEART: Irregularly irregular rhythm. EXTREMITIES: Lower extremities, no edema. Bruise in the upper right leg continues to diminish. Her urine culture collected on 07/13 grew E coli, colony count was only 10,000 to 25,000. ASSESSMENT: 1. Generalized weakness. a. Following a fall resulting in right hip fracture and repair and fracture of the left distal radius. b. Prior to the fall, the patient was independent of all her ADLs. c. Continued gradual improvement. Walking up to 22 feet with a platform walker as of 07/16. 2. Subtrochanteric fracture of the right hip secondary to a fall on 06/28. a. Status post open reduction and internal fixation on 06/30/2019. b. Continued improvement. Walking up to 22 feet. Pain seemed to be much better controlled as of 07/16. 3. Closed undisplaced fracture of the left distal radius. a. Secondary to a fall on 06/28. b. Managed with fiberglass cast that is appropriately fitting as of 07/16. 4. Chronic atrial fibrillation. a. Rate controlled. b. On chronic anticoagulation with Eliquis. 5. Status post pacemaker placement. 6. History of congestive heart failure. a. No evidence of acute congestive heart failure. 7. Coronary artery disease, asymptomatic. 8. Hypertension, controlled. 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 10. Anemia. a. Hemoglobin 8.8 on 07/07. b. Hemoglobin 8.1 on 07/15. 11. Hypothyroidism. 12. Ulcer on the left vulva. Continued improvement as of 07/16. 13. Urinary retention requiring indwelling Hernández catheter. a. Catheter was removed and had to be replaced due to retention on 07/12. b. Bladder spasms controlled. PLAN: Continue present care. Continue PT and OT. We will continue present medicines. Job ID: [id number] [facility]TDD
[2019-07-17] MEDS: Acetaminophen 325 MG TAB PO PRN (14:24)
[2019-07-17] MEDS: cloNIDine 0.1 MG TAB PO SCH (20:56)
[2019-07-17] MEDS: Atorvastatin Calcium 10 MG TAB PO SCH (20:57)
[2019-07-18] MEDS: Phenazopyridine HCl 97.5 MG TABLET PO SCH (05:19)
[2019-07-18] MEDS: Levothyroxine Sodium 75 MCG TAB PO SCH (05:20)
[2019-07-18] MEDS: Acetaminophen/Codeine 30-300mg Tablet PO PRN ×2 (05:20→16:19)
[2019-07-18] MEDS: Ferrous Sulfate 325 MG TAB PO SCH (08:35)
[2019-07-18] MEDS: Carvedilol 6.25 MG TAB PO SCH ×2 (08:36→20:28)
[2019-07-18] MEDS: Apixaban 5 MG TAB PO SCH ×2 (08:36→20:28)
[2019-07-18] MEDS: Calcium Carbonate 500 MG TAB PO SCH (08:36)
[2019-07-18] MEDS: Lisinopril 20 MG TAB PO SCH (08:36)
[2019-07-18] MEDS: Senokot S 8.6-50 MG TAB PO SCH (08:37)
[2019-07-18] MEDS: Estradiol 1 MG TAB PO SCH (08:37)
[2019-07-18] MEDS ORDERED: Phenazopyridine HCl 97.5 MG TABLET PO PRN (09:45)
--- NOTE | 2019-07-18 11:41 | PRG ---
DATE OF SERVICE: 07/18/2019 SUBJECTIVE: The patient says she is feeling good this morning. The therapist said she walked about 16 feet this morning. She is in Physical Therapy, working with them this morning. She had no complaint. OBJECTIVE: VITAL SIGNS: Show a temperature 98.4, pulse 79, respirations 18, O2 saturation 95% on room air, blood pressure 149/66. LUNGS: Clear. HEART: Irregular irregular rhythm. EXTREMITIES: Lower extremities have no edema. Bruise in the upper right leg continues to fade. ASSESSMENT: 1. Generalized weakness. a. Following a fall resulting in a right hip fracture and later repair, and fracture of left distal radius. b. Prior to fall, the patient was independent of all her ADLs. c. Continued gradual improvement as of 07/17. 2. Subtrochanteric fracture of the right hip secondary to a fall on 06/28. a. Status post open reduction and internal fixation on 06/30/2019. b. Continued improvement, incision is gradually healing. Walking further. Pain reasonably controlled as of 07/17. 3. Closed undisplaced fracture of the left distal radius. a. Secondary to a fall on 06/28. b. Managed with fiberglass cast that is appropriately fitting as of 07/17. 4. Chronic atrial fibrillation. a. Rate controlled. b. On chronic anticoagulation with Eliquis. 5. Status post pacemaker insertion. 6. History of congestive heart failure. a. No evidence of acute congestive failure. 7. Coronary artery disease, asymptomatic. 8. Hypertension, controlled. 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 10. Anemia. a. Hemoglobin 8.8 on 07/07. b. Hemoglobin 8.1 on 07/15. 11. Hypothyroidism. 12. Ulcer on the left vulva continued to improve as of 07/18/2019. 13. Urinary retention requiring indwelling Hernández catheter. a. Catheter was removed and had to be replaced due to the retention on . b. Bladder spasms controlled. PLAN: Continue present care. Continue PT. We will switch Pyridium to p.r.n. in a few days. We will try discontinuing the catheter. Job ID: [id number] [facility]
[2019-07-18] MEDS: Polyethylene Glycol 3350 17 GM Packet PO PRN (12:37)
[2019-07-18] MEDS: Mupirocin 2% Ointment 22 GM Tube TOP SCH ×3 (16:16→21:00)
[2019-07-18] MEDS: Atorvastatin Calcium 10 MG TAB PO SCH (20:27)
[2019-07-18] MEDS: cloNIDine 0.1 MG TAB PO SCH (20:28)
[2019-07-19] MEDS: Levothyroxine Sodium 75 MCG TAB PO SCH (05:37)
[2019-07-19] MEDS: Senokot S 8.6-50 MG TAB PO SCH (08:21)
[2019-07-19] MEDS: Ferrous Sulfate 325 MG TAB PO SCH (08:21)
[2019-07-19] MEDS: Apixaban 5 MG TAB PO SCH ×2 (08:21→21:02)
[2019-07-19] MEDS: Calcium Carbonate 500 MG TAB PO SCH (08:21)
[2019-07-19] MEDS: Estradiol 1 MG TAB PO SCH (08:21)
[2019-07-19] MEDS: Lisinopril 20 MG TAB PO SCH (08:22)
[2019-07-19] MEDS: Carvedilol 6.25 MG TAB PO SCH ×2 (08:22→21:02)
[2019-07-19] MEDS: Mupirocin 2% Ointment 22 GM Tube TOP SCH ×2 (08:23→21:02)
[2019-07-19] MEDS: Acetaminophen/Codeine 30-300mg Tablet PO PRN (16:24)
[2019-07-19] MEDS: Acetaminophen 325 MG TAB PO PRN (21:01)
[2019-07-19] MEDS: cloNIDine 0.1 MG TAB PO SCH (21:01)
[2019-07-19] MEDS: Atorvastatin Calcium 10 MG TAB PO SCH (21:02)
[2019-07-20] MEDS: Levothyroxine Sodium 75 MCG TAB PO SCH (05:52)
[2019-07-20] MEDS: Acetaminophen/Codeine 30-300mg Tablet PO PRN ×3 (08:25→23:31)
[2019-07-20] MEDS: Carvedilol 6.25 MG TAB PO SCH ×2 (08:26→20:15)
[2019-07-20] MEDS: Senokot S 8.6-50 MG TAB PO SCH (08:26)
[2019-07-20] MEDS: Apixaban 5 MG TAB PO SCH ×2 (08:26→20:15)
[2019-07-20] MEDS: Lisinopril 20 MG TAB PO SCH (08:26)
[2019-07-20] MEDS: Estradiol 1 MG TAB PO SCH (08:26)
[2019-07-20] MEDS: Calcium Carbonate 500 MG TAB PO SCH (08:27)
[2019-07-20] MEDS: Mupirocin 2% Ointment 22 GM Tube TOP SCH ×2 (08:27→20:16)
[2019-07-20] MEDS: Ferrous Sulfate 325 MG TAB PO SCH (08:27)
[2019-07-20] MEDS: Atorvastatin Calcium 10 MG TAB PO SCH (20:15)
[2019-07-20] MEDS: cloNIDine 0.1 MG TAB PO SCH (20:15)
[2019-07-21] MEDS: Levothyroxine Sodium 75 MCG TAB PO SCH (05:19)
[2019-07-21 05:28] LABS: #Basophils 0.1 thou/uL (0.0-0.2); #Eosinphils 0.4 thou/uL (0.0-0.7); #Lymphocytes 1.9 thou/uL (1.20-3.40); #Monocytes 1.1 thou/uL (0.11-0.59); #Neutrophils 4.6 thou/uL (1.40-6.50); %Basophils 1.3 % (0.0-1.0); %Eosinophils 4.4 % (0.0-10.0); %Lymphocytes 23.8 % (21.0-51.0); %Neutrophils 56.4 % (42.0-75.0); Hemoglobin 8.4 g/dL (12.0-16.0); Mean Corpuscular HGB CONC 31.2 g/dL (32.0-36.0); Mean Corpuscular Hemoglobin 28.5 pg (27.0-31.0); Mean Corpuscular Volume 91.1 fL (78.0-98.0); Mean Platelet Volume 6.6 fL (7.4-10.4); Platelet Count 384 thou/uL (130-400); RBC Distribution Width 15.7 % (11.5-14.5); Red Blood Cell (RBC) Count 2.95 mill/uL (4.20-5.40); White Blood Cell (WBC) Count 8.1 thou/uL (4.8-10.8)
[2019-07-21 05:37] LABS: Anion Gap 12 mmol/L (10-20); BUN (Urea Nitrogen) 10 mg/dL (9.8-20.1); Calc. Creatinine Clearance 35 mL/min (70-130); Calcium 8.2 mg/dL (7.8-10.44); Carbon Dioxide 23 mmol/L (23-31); Chloride 104 mmol/L (98-107); Estimated GFR-MDRD 49; Glucose 100 mg/dL (83-110); Potassium 4.5 mmol/L (3.5-5.1); Sodium 134 mmol/L (136-145)
[2019-07-21] MEDS: Carvedilol 6.25 MG TAB PO SCH (08:03)
[2019-07-21] MEDS: Calcium Carbonate 500 MG TAB PO SCH (08:03)
[2019-07-21] MEDS: Ferrous Sulfate 325 MG TAB PO SCH (08:04)
[2019-07-21] MEDS: Lisinopril 20 MG TAB PO SCH (08:04)
[2019-07-21] MEDS: Senokot S 8.6-50 MG TAB PO SCH (08:05)
[2019-07-21] MEDS: Apixaban 5 MG TAB PO SCH ×2 (08:05→20:17)
[2019-07-21] MEDS: Estradiol 1 MG TAB PO SCH (08:05)
--- NOTE | 2019-07-21 10:28 | PRG ---
DATE OF SERVICE: 07/21/2019 SUBJECTIVE: The patient says she is doing all right. She says she still has pain in that right hip. She is making further progress with physical therapy. She is transferring better with assist, but continues to need assistance, walking short distances with assistance. She lives with her granddaughter and and her great granddaughter is a teacher who is off right now with the coronavirus pandemic and once she does go home will be able to help also. Prior to her hospitalization, she said she lived with her granddaughter and her , and was independent of all her ADLs. She said she cooked, took care of the dogs, ironed. OBJECTIVE: GENERAL: The patient is sitting up on bedside commode. She is alert, very talkative, very clear, and was asking about how she is doing. VITAL SIGNS: Show a temperature of 98.9, pulse 79, respirations 18, O2 saturation 96% on room air, blood pressure 131/60. LUNGS: Clear. HEART: Regular rate. EXTREMITIES: No edema. All the bruising is resolving. Her incisions are healing. LABORATORY DATA: H and H of 8.4 and 26.8, white cell count 8100 with 56% segs, 24% lymphocytes and a platelet count of 384. Sodium 134, potassium 4.5, BUN 10, creatinine 1.05, GFR up to 49, glucose 100. ASSESSMENT: 1. Generalized weakness. a. Following a fall resulting in a right hip fracture and repair, and fracture of the left distal radius. b. Prior to the fall, the patient was independent of all her ADLs. c. Continued improvement as of 07/20. 2. Subtrochanteric fracture of the right hip secondary to a fall on 06/28. a. Status post open reduction and internal fixation on 06/30/2019. b. Continued improvement. Incision healing well. Walking further. Pain reasonably controlled as of 07/20. 3. Closed undisplaced fracture of the left distal radius. a. Secondary to a fall on 06/28. b. Managed with fiberglass cast that is appropriately fitting as of 07/20. 4. Chronic atrial fibrillation. a. Rate controlled. b. On chronic anticoagulation with Eliquis. 5. Status post pacemaker insertion. 6. History of congestive heart failure. a. No evidence of acute congestive heart failure. 7. Coronary artery disease, asymptomatic. 8. Hypertension, controlled. 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 10. Anemia. a. Hemoglobin 8.8 on 07/07. b. Hemoglobin 8.1 on 07/15. c. Hemoglobin 8.4 on 07/20. 11. Hypothyroidism. 12. Ulcer on the left vulva. Continued healing as of 07/20. 13. Urinary retention requiring indwelling Hernández catheter. a. Cath was removed and had to be replaced due to retention on 07/12. b. Bladder spasms controlled. PLAN: Continue present care. The nurse had reported that the ulcer on the vulva is very tiny and almost totally healed. We will try again removing the catheter and see how she tolerates this. Job ID: [id number] [facility]TDD
[2019-07-21] MEDS: Mupirocin 2% Ointment 22 GM Tube TOP SCH ×2 (10:56→20:20)
[2019-07-21] MEDS: Acetaminophen/Codeine 30-300mg Tablet PO PRN ×2 (13:35→20:15)
[2019-07-21] MEDS: Acetaminophen 325 MG TAB PO PRN ×2 (14:55→22:41)
[2019-07-21] MEDS: Atorvastatin Calcium 10 MG TAB PO SCH (20:16)
[2019-07-21] MEDS: cloNIDine 0.1 MG TAB PO SCH (20:22)
[2019-07-21] MEDS: Carvedilol 12.5 MG TAB PO SCH (20:33)
[2019-07-22] MEDS: Acetaminophen/Codeine 30-300mg Tablet PO PRN ×3 (04:25→16:37)
[2019-07-22] MEDS: Levothyroxine Sodium 75 MCG TAB PO SCH (05:55)
[2019-07-22] MEDS: Apixaban 5 MG TAB PO SCH ×2 (08:13→20:20)
[2019-07-22] MEDS: Carvedilol 12.5 MG TAB PO SCH ×2 (08:13→20:20)
[2019-07-22] MEDS: Acetaminophen 325 MG TAB PO PRN ×3 (08:13→20:20)
[2019-07-22] MEDS: Calcium Carbonate 500 MG TAB PO SCH (08:13)
[2019-07-22] MEDS: Estradiol 1 MG TAB PO SCH (08:13)
[2019-07-22] MEDS: Ferrous Sulfate 325 MG TAB PO SCH (08:13)
[2019-07-22] MEDS: Senokot S 8.6-50 MG TAB PO SCH (08:14)
[2019-07-22] MEDS: Lisinopril 20 MG TAB PO SCH (08:14)
[2019-07-22] MEDS: Mupirocin 2% Ointment 22 GM Tube TOP SCH ×2 (08:14→20:21)
--- NOTE | 2019-07-22 10:28 | PRG ---
DATE OF SERVICE: 07/22/2019 SUBJECTIVE: The patient said she is feeling good today. Her Hernández catheter was removed yesterday and she has not had any trouble with her voiding. She has already been to physical therapy this morning and doing better with that. She is walking up to 30 feet now with a rolling walker. She is transferring with minimum assistance. OBJECTIVE: GENERAL: The patient is sitting up in a chair, looks very comfortable, smiling, getting ready to eat her breakfast. VITAL SIGNS: Show a temperature of 98.7, pulse 67, respirations 18, O2 saturation 97% on room air, blood pressure 130/63. LUNGS: Clear. HEART: Irregular, irregular rhythm. EXTREMITIES: No edema. The patient is wearing her CATHERINE hose. ASSESSMENT: 1. Generalized weakness. a. Following a fall resulting in a right hip fracture and fracture of the right distal radius on 06/29/2019. b. Prior to fall, the patient was independent of all her ADLs. c. Improved. Walking up to 30 feet with a rolling walker. Transferring with just minimum assistance as of 07/21. 2. Subtrochanteric fracture of the right hip secondary to a fall on 06/28. a. Status post open reduction and internal fixation on 06/30/2019. b. Continued improvement. Incision healed. Walking further. Pain controlled as of 07/21. 3. Closed undisplaced fracture of the left distal radius. a. Secondary to a fall on 06/28. b. Managed with a fiberglass cast, it is appropriately fitting as of 07/21. 4. Chronic atrial fibrillation. a. Rate control. b. On chronic anticoagulation with Eliquis. 5. Status post pacemaker insertion. 6. History of congestive heart failure. a. No evidence of acute congestive heart failure. 7. Coronary artery disease, asymptomatic. 8. Hypertension, controlled. 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 10. Anemia. a. Hemoglobin on 07/07 8.8. b. Hemoglobin 8.1 on 07/05. c. Hemoglobin 8.4 on 07/20. 11. Hypothyroidism. 12. Ulcer on the left vulva, almost healed as of 07/21. 13. Urinary retention. a. Catheter was removed and had to be replaced due to retention on 07/12. b. Catheter removed on 07/21/2019 and the patient voiding without any trouble as of 07/21. PLAN: The patient is making excellent progress. We will continue present care. Continue PT and OT. Job ID: [id number] [facility]TDD
[2019-07-22] MEDS: Atorvastatin Calcium 10 MG TAB PO SCH (20:20)
[2019-07-22] MEDS: cloNIDine 0.1 MG TAB PO SCH (20:20)
[2019-07-23] MEDS: Acetaminophen/Codeine 30-300mg Tablet PO PRN ×4 (00:09→18:01)
[2019-07-23] MEDS: Acetaminophen 325 MG TAB PO PRN ×3 (02:25→21:09)
[2019-07-23] MEDS: Levothyroxine Sodium 75 MCG TAB PO SCH (05:13)
[2019-07-23] MEDS: Carvedilol 12.5 MG TAB PO SCH ×2 (08:04→20:15)
[2019-07-23] MEDS: Senokot S 8.6-50 MG TAB PO SCH (08:04)
[2019-07-23] MEDS: Apixaban 5 MG TAB PO SCH ×2 (08:04→20:16)
[2019-07-23] MEDS: Ferrous Sulfate 325 MG TAB PO SCH (08:05)
[2019-07-23] MEDS: Estradiol 1 MG TAB PO SCH (08:05)
[2019-07-23] MEDS: Calcium Carbonate 500 MG TAB PO SCH (08:05)
[2019-07-23] MEDS: Lisinopril 20 MG TAB PO SCH (08:05)
[2019-07-23] MEDS: Mupirocin 2% Ointment 22 GM Tube TOP SCH ×2 (08:05→20:17)
[2019-07-23] MEDS: Atorvastatin Calcium 10 MG TAB PO SCH (20:15)
[2019-07-23] MEDS: cloNIDine 0.1 MG TAB PO SCH (20:15)
[2019-07-24] MEDS: Acetaminophen/Codeine 30-300mg Tablet PO PRN ×3 (01:02→21:16)
[2019-07-24] MEDS: Acetaminophen 325 MG TAB PO PRN ×2 (04:05→22:33)
[2019-07-24] MEDS: Levothyroxine Sodium 75 MCG TAB PO SCH (05:29)
[2019-07-24] MEDS: Lisinopril 20 MG TAB PO SCH (08:03)
[2019-07-24] MEDS: Carvedilol 12.5 MG TAB PO SCH ×2 (08:03→21:15)
[2019-07-24] MEDS: Ferrous Sulfate 325 MG TAB PO SCH (08:03)
[2019-07-24] MEDS: Calcium Carbonate 500 MG TAB PO SCH (08:03)
[2019-07-24] MEDS: Apixaban 5 MG TAB PO SCH ×2 (08:04→21:16)
[2019-07-24] MEDS: Senokot S 8.6-50 MG TAB PO SCH (08:04)
[2019-07-24] MEDS: Estradiol 1 MG TAB PO SCH (08:04)
--- NOTE | 2019-07-24 10:33 | PRG ---
DATE OF SERVICE: 07/24/2019 SUBJECTIVE: The patient said she is doing good this morning. She had no complaint. She continues to make progress with her physical therapy. OBJECTIVE: GENERAL: The patient is sitting up in a chair. She is alert, talkative, and appears in no distress. VITAL SIGNS: Show a temperature of 99 last evening. Her pulse 68, respirations 20, O2 saturation 97%, and blood pressure 131/60. Temperature this morning is 97.9. LUNGS: Clear. HEART: Irregularly irregular rhythm. EXTREMITIES: Lower extremities, no edema. The bruising in the proximal right leg is all resolving and the incisions are healing well. : Ulceration on the vulva almost totally healed. ASSESSMENT: 1. Generalized weakness: a. Following a fall resulting in a right hip fracture, fracture of the right distal radius on 06/29/2019. b. Prior to fall, the patient was independent of all her ADLs. c. Improved. Walking up to 50 feet with a rolling walker. Transferring with minimal assistance as of 07/23. 2. Subtrochanteric fracture of the right hip secondary to a fall on 06/28: a. Status post open reduction and internal fixation on 06/30/2019. b. Continued improvement. Incisions healed. Walking further. Pain controlled as of 07/23. 3. Closed undisplaced fracture of the left distal radius: a. Secondary to a fall on 06/28. b. Managed with a fiberglass cast, it is appropriately fitting on 07/21. 4. Chronic atrial fibrillation: a. Rate controlled. b. On chronic anticoagulation with Eliquis. 5. Status post pacemaker insertion. 6. History of congestive heart failure: a. No evidence of acute congestive heart failure. 7. Coronary artery disease, asymptomatic. 8. Hypertension, controlled. 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 10. Anemia. 11. Hypothyroidism. 12. Ulcer on the left vulva, almost healed as of 07/23. 13. Urinary retention: a. Voiding fine, the catheter was removed on 07/21/2019. PLAN: Continue present care, continue PT, continue OT. The patient did mention that her granddaughter had asked her if she was on a diuretic. Apparently, she had been on one in the past. Presently, she is not on any, and at present, she has no evidence of any fluid overload or any evidence of congestive failure. Job ID: [id number] [facility]
[2019-07-24] MEDS: Mupirocin 2% Ointment 22 GM Tube TOP SCH ×2 (11:04→21:15)
[2019-07-24] MEDS: cloNIDine 0.1 MG TAB PO SCH (21:15)
[2019-07-24] MEDS: Atorvastatin Calcium 10 MG TAB PO SCH (21:16)
[2019-07-25] MEDS: Acetaminophen/Codeine 30-300mg Tablet PO PRN ×4 (03:02→22:21)
[2019-07-25] MEDS: Levothyroxine Sodium 75 MCG TAB PO SCH (05:43)
[2019-07-25] MEDS: Acetaminophen 325 MG TAB PO PRN ×2 (06:54→20:48)
[2019-07-25] MEDS: Lisinopril 20 MG TAB PO SCH (09:07)
[2019-07-25] MEDS: Senokot S 8.6-50 MG TAB PO SCH (09:07)
[2019-07-25] MEDS: Estradiol 1 MG TAB PO SCH (09:08)
[2019-07-25] MEDS: Apixaban 5 MG TAB PO SCH ×2 (09:08→20:48)
[2019-07-25] MEDS: Calcium Carbonate 500 MG TAB PO SCH (09:08)
[2019-07-25] MEDS: Carvedilol 12.5 MG TAB PO SCH ×2 (09:08→20:48)
[2019-07-25] MEDS: Ferrous Sulfate 325 MG TAB PO SCH (09:08)
[2019-07-25] MEDS: Mupirocin 2% Ointment 22 GM Tube TOP SCH ×2 (09:11→21:01)
--- NOTE | 2019-07-25 09:52 | PRG ---
DATE OF SERVICE: 07/25/2019 SUBJECTIVE: Patient said she is doing good. She is a little sore this morning. She has been doing very good with her therapy. She is transferring easier. Yesterday, she walked up to 100 feet, but had to take a little break midway through the walk. She is scheduled to see her orthopedic surgeon and follow up on 07/27. OBJECTIVE: GENERAL: Patient lying in bed. She is alert, appears in no distress. VITAL SIGNS: Temperature 97.9, pulse 76, respirations 20, O2 saturation 98% on room air, blood pressure 136/65. LUNGS: Clear. HEART: Irregularly irregular rhythm. EXTREMITIES: Lower extremities, there is no edema. The incisions are healing well. : Nurses report the ulcer on the left vulva continues to improve. ASSESSMENT: 1. Generalized weakness. a. Following a fall resulting in a right hip fracture and fracture of the right distal radius on 06/29/2019. b. Prior to fall, the patient was independent of all her ADLs. c. Improved, walking now up to 100 feet with a rolling walker. Transferring better as of 07/24. 2. Subtrochanteric fracture of the right hip secondary to a fall on 06/28. a. Status post open reduction and internal fixation on 06/30/19. b. Continued improvement. Incision is healed. Walking further. Pain well controlled as of 07/24. 3. Closed undisplaced fracture of the left distal radius. a. Secondary to a fall on 06/28. b. Managed with fiberglass cast that is appropriately fitting on 07/24. 4. Chronic atrial fibrillation. a. Rate controlled. b. On chronic anticoagulation with Eliquis. 5. Status post pacemaker insertion. 6. History of congestive heart failure. a. No evidence of acute congestive heart failure. 7. Coronary artery disease. a. Asymptomatic. 8. Hypertension. 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 10. Anemia. 11. Hypothyroidism. 12. Ulcer on the left vulva, continued to heal as of 07/24. 13. Urinary retention. a. Catheter removed on 07/21/19. Patient voiding without any difficulty as of 07/24. PLAN: Continue PT and OT. The patient is scheduled to see her orthopedic surgeon, Dr. Maikel Wong on 07/27. Job ID: [id number] [facility]TDD
[2019-07-25] MEDS: cloNIDine 0.1 MG TAB PO SCH (20:48)
[2019-07-25] MEDS: Atorvastatin Calcium 10 MG TAB PO SCH (20:48)
[2019-07-26] MEDS: Levothyroxine Sodium 75 MCG TAB PO SCH (05:37)
[2019-07-26] MEDS: Acetaminophen/Codeine 30-300mg Tablet PO PRN ×3 (05:37→20:02)
[2019-07-26] MEDS: Lisinopril 20 MG TAB PO SCH (08:09)
[2019-07-26] MEDS: Ferrous Sulfate 325 MG TAB PO SCH (08:09)
[2019-07-26] MEDS: Carvedilol 12.5 MG TAB PO SCH ×2 (08:09→20:03)
[2019-07-26] MEDS: Senokot S 8.6-50 MG TAB PO SCH (08:09)
[2019-07-26] MEDS: Estradiol 1 MG TAB PO SCH (08:09)
[2019-07-26] MEDS: Calcium Carbonate 500 MG TAB PO SCH (08:09)
[2019-07-26] MEDS: Mupirocin 2% Ointment 22 GM Tube TOP SCH ×2 (08:09→20:12)
[2019-07-26] MEDS: Apixaban 5 MG TAB PO SCH ×2 (08:09→20:03)
[2019-07-26] MEDS: Atorvastatin Calcium 10 MG TAB PO SCH (20:03)
[2019-07-26] MEDS: cloNIDine 0.1 MG TAB PO SCH (20:03)
[2019-07-26] MEDS: Acetaminophen 325 MG TAB PO PRN (22:41)
[2019-07-27] MEDS: Levothyroxine Sodium 75 MCG TAB PO SCH (05:40)
[2019-07-27] MEDS: Acetaminophen/Codeine 30-300mg Tablet PO PRN ×3 (05:40→18:30)
[2019-07-27] MEDS: Ferrous Sulfate 325 MG TAB PO SCH (07:55)
[2019-07-27] MEDS: Calcium Carbonate 500 MG TAB PO SCH (07:55)
[2019-07-27] MEDS: Carvedilol 12.5 MG TAB PO SCH ×2 (07:55→21:30)
[2019-07-27] MEDS: Lisinopril 20 MG TAB PO SCH (07:55)
[2019-07-27] MEDS: Estradiol 1 MG TAB PO SCH (07:55)
[2019-07-27] MEDS: Mupirocin 2% Ointment 22 GM Tube TOP SCH ×2 (07:56→21:54)
[2019-07-27] MEDS: Senokot S 8.6-50 MG TAB PO SCH (07:56)
[2019-07-27] MEDS: Apixaban 5 MG TAB PO SCH ×2 (07:57→21:30)
[2019-07-27] MEDS: Acetaminophen 325 MG TAB PO PRN ×3 (07:57→21:53)
[2019-07-27] MEDS: Atorvastatin Calcium 10 MG TAB PO SCH (21:30)
[2019-07-27] MEDS: cloNIDine 0.1 MG TAB PO SCH (21:31)
[2019-07-28] MEDS: Acetaminophen/Codeine 30-300mg Tablet PO PRN ×3 (00:29→19:16)
[2019-07-28] MEDS: Acetaminophen 325 MG TAB PO PRN ×2 (05:19→21:18)
[2019-07-28] MEDS: Levothyroxine Sodium 75 MCG TAB PO SCH (05:19)
[2019-07-28 05:44] LABS: Hemoglobin 9.2 g/dL (12.0-16.0); Platelet Count 328 thou/uL (130-400)
[2019-07-28] MEDS: Lisinopril 20 MG TAB PO SCH (08:07)
[2019-07-28] MEDS: Calcium Carbonate 500 MG TAB PO SCH (08:07)
[2019-07-28] MEDS: Apixaban 5 MG TAB PO SCH ×2 (08:07→21:19)
[2019-07-28] MEDS: Senokot S 8.6-50 MG TAB PO SCH (08:07)
[2019-07-28] MEDS: Estradiol 1 MG TAB PO SCH (08:07)
[2019-07-28] MEDS: Ferrous Sulfate 325 MG TAB PO SCH (08:08)
[2019-07-28] MEDS: Carvedilol 12.5 MG TAB PO SCH ×2 (08:08→21:19)
--- NOTE | 2019-07-28 09:07 | PRG ---
DATE OF SERVICE: 07/28/2019 SUBJECTIVE: The patient is in the physical therapy room. She has just gotten off the [employer], where she is able to work her arms and legs. She is doing better and working on this longer. She is walking a little further and transferring a little easier. She still has some pain in the right hip after she does a lot, but it easily settles down. Her pain seemed to be well controlled. She is due to see her orthopedic surgeon, Dr. Wong today. OBJECTIVE: GENERAL: The patient is sitting up in a wheelchair. She is alert, talkative, appears in no distress. VITAL SIGNS: Her temperature is 97.4, pulse 73, respirations 16, room air O2 saturation 99%, blood pressure 159/68. LUNGS: Clear. HEART: Irregularly irregular rhythm. EXTREMITIES: No edema. Incisions along the right hip and lateral right leg are all healed. LABORATORY DATA: Shows an H and H of 9.2 and 30.8, platelet count 328,000. Her creatinine is 1.11, GFR 46. ASSESSMENT: 1. Generalized weakness. a. Following a fall resulting in a right hip fracture and fracture of the right distal radius on 06/29/2019. b. Prior to fall the patient was independent of all her activities of daily living. c. Continued improvement. Walking a little further with a rolling walker and transferring easier. 2. Subtrochanteric fracture of the right hip secondary to a fall on 06/28. a. Status post open reduction and internal fixation on 06/30/2019 by orthopedic surgeon, Dr. Wong. b. Continued improvement. The incisions are healed. Walking further. Pain well controlled as of 07/27. 3. Closed undisplaced fracture of the left distal radius. a. Secondary to a fall on 06/28. b. Managed with a fiberglass cast that is appropriately fitting as of 07/27. 4. Chronic atrial fibrillation. a. Rate controlled. b. On chronic anticoagulation with Eliquis. 5. Status post pacemaker insertion. 6. History congestive heart failure. a. No evidence of acute congestive heart failure. 7. Coronary artery disease, asymptomatic. 8. Hypertension, controlled. 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 10. Anemia. a. Improved with hemoglobin of 9.2 as of 07/27. 11. Hypothyroidism. 12. Ulcer on the left vulva, healing as of 07/27. 13. Urinary retention. a. Catheter removed on 07/20. b. Voiding without any difficulty as of 07/27. PLAN: Continue present care. Continue PT/OT. The patient is scheduled to see her orthopedic surgeon, Dr. Wong today. Job ID: [id number] MTDD
[2019-07-28] MEDS: Mupirocin 2% Ointment 22 GM Tube TOP SCH ×2 (09:50→21:20)
[2019-07-28] MEDS: cloNIDine 0.1 MG TAB PO SCH (21:18)
[2019-07-28] MEDS: Atorvastatin Calcium 10 MG TAB PO SCH (21:19)
[2019-07-29] MEDS: Acetaminophen/Codeine 30-300mg Tablet PO PRN ×2 (04:27→20:42)
[2019-07-29] MEDS: Levothyroxine Sodium 75 MCG TAB PO SCH (04:27)
[2019-07-29] MEDS: Estradiol 1 MG TAB PO SCH (08:29)
[2019-07-29] MEDS: Ferrous Sulfate 325 MG TAB PO SCH (08:29)
[2019-07-29] MEDS: Carvedilol 12.5 MG TAB PO SCH ×2 (08:29→20:43)
[2019-07-29] MEDS: Acetaminophen 325 MG TAB PO PRN ×2 (08:29→21:50)
[2019-07-29] MEDS: Calcium Carbonate 500 MG TAB PO SCH (08:29)
[2019-07-29] MEDS: Senokot S 8.6-50 MG TAB PO SCH (08:29)
[2019-07-29] MEDS: Mupirocin 2% Ointment 22 GM Tube TOP SCH ×2 (08:29→20:51)
[2019-07-29] MEDS: Lisinopril 20 MG TAB PO SCH (08:30)
[2019-07-29] MEDS: Apixaban 5 MG TAB PO SCH ×2 (08:30→20:43)
--- NOTE | 2019-07-29 10:02 | PRG ---
DATE OF SERVICE: 07/29/2019 SUBJECTIVE: The patient is sitting up in a bedside chair, eating breakfast. Yesterday, she went to see her orthopedic surgeon, Dr. Maikel Wong, at [facility]. She said the visit did not go good. He was concerned about the right hip. Her left distal radial fracture is doing well and x-ray showed good alignment. He has taken off the fiberglass cast and has put her in a removable cock-up forearm splint and she is comfortable with this. The x-ray of the right hip showed that there has been some collapse and loss of the reduction following the cephalomedullary nailing of the subtrochanteric femur fracture. He has recommended that she only toe-touch as far as weightbearing and will do a followup x-ray on this in 4 weeks. He will review this with his peers to see if anything additional may need to be done. OBJECTIVE: GENERAL: The patient is alert, appears a little discouraged, but not in any acute distress. VITAL SIGNS: Her temperature is 98, pulse 95, respirations 18, O2 saturation 96 % on room air, and blood pressure 159/71. LUNGS: Clear. HEART: Irregularly irregular rhythm. EXTREMITIES: No edema. ASSESSMENT: 1. Generalized weakness. a. Following a fall resulting in a right hip fracture and fracture of the right distal radius on 06/28. b. Prior to the fall, the patient was independent of all her activities of daily living. c. The patient has made good progress and was walking further with a rolling walker, but has been placed back on only toe-touch weightbearing on that right leg as of 07/28. 2. Subtrochanteric fracture of the right hip secondary to a fall on 06/28. a. Status post cephalomedullary nailing by Dr. Maikel Wong, orthopedic surgeon, on 06/20/2019. b. The incision healed. Pain well controlled. c. Visit with Dr. Wong on 07/27 showed there has been some collapse and loss of reduction of the fracture, and the patient now has been placed on only toe-touch weightbearing and will be re-evaluated in 4 weeks with repeat x-ray. 3. Closed undisplaced fracture of the left distal radius. a. Secondary to a fall on 06/28. b. Managed with a fiberglass cast for 4 weeks, with cast removed on 07/27, and the patient placed in a forearm removable splint. 4. Chronic atrial fibrillation. a. Rate control. b. On chronic anticoagulation with Eliquis. 5. Status post pacemaker insertion. 6. History of congestive heart failure. a. No evidence of acute congestive heart failure. 7. Coronary artery disease, asymptomatic. 8. Hypertension. 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 10. Anemia. a. Improved with hemoglobin 9.2 as of 07/27. 11. Hypothyroidism. 12. Ulcer in the left vulva, healing. 13. Urinary retention. a. Catheter removed on 07/20. b. Voiding without any difficulty as of 07/28. PLAN: After the patient's visit with Dr. Wong on 07/27, her fiberglass cast was removed and she was placed in a removable forearm splint. As she has lost some position of the right hip fracture that was noted on x-ray by Dr. Wong, he has placed her on just toe-touch weightbearing as of 07/27 and will re-evaluate with an x-ray in 4 weeks. He will confer with his peers to see if anything additional may need to be done. Continue PT and OT with these changes. Job ID: [id number] MTDD
[2019-07-29] MEDS: cloNIDine 0.1 MG TAB PO SCH (20:43)
[2019-07-29] MEDS: Atorvastatin Calcium 10 MG TAB PO SCH (20:43)
[2019-07-30] MEDS: Acetaminophen/Codeine 30-300mg Tablet PO PRN ×4 (02:36→20:55)
[2019-07-30] MEDS: Levothyroxine Sodium 75 MCG TAB PO SCH (05:38)
[2019-07-30] MEDS: Senokot S 8.6-50 MG TAB PO SCH (08:37)
[2019-07-30] MEDS: Lisinopril 20 MG TAB PO SCH (08:38)
[2019-07-30] MEDS: Apixaban 5 MG TAB PO SCH ×2 (08:38→20:30)
[2019-07-30] MEDS: Carvedilol 12.5 MG TAB PO SCH ×2 (08:38→20:31)
[2019-07-30] MEDS: Calcium Carbonate 500 MG TAB PO SCH (08:39)
[2019-07-30] MEDS: Ferrous Sulfate 325 MG TAB PO SCH (08:39)
[2019-07-30] MEDS: Estradiol 1 MG TAB PO SCH (08:43)
[2019-07-30] MEDS: Mupirocin 2% Ointment 22 GM Tube TOP SCH ×2 (08:46→20:44)
[2019-07-30] MEDS: Acetaminophen 325 MG TAB PO PRN ×2 (17:13→23:21)
[2019-07-30] MEDS: cloNIDine 0.1 MG TAB PO SCH (20:31)
[2019-07-30] MEDS: Atorvastatin Calcium 10 MG TAB PO SCH (20:31)
[2019-07-31] MEDS: Levothyroxine Sodium 75 MCG TAB PO SCH (05:44)
[2019-07-31] MEDS: Acetaminophen/Codeine 30-300mg Tablet PO PRN ×3 (05:45→18:13)
[2019-07-31] MEDS: Lisinopril 20 MG TAB PO SCH (07:50)
[2019-07-31] MEDS: Apixaban 5 MG TAB PO SCH ×2 (07:50→20:06)
[2019-07-31] MEDS: Carvedilol 12.5 MG TAB PO SCH ×2 (07:50→20:06)
[2019-07-31] MEDS: Calcium Carbonate 500 MG TAB PO SCH (07:50)
[2019-07-31] MEDS: Senokot S 8.6-50 MG TAB PO SCH (07:50)
[2019-07-31] MEDS: Ferrous Sulfate 325 MG TAB PO SCH (07:52)
[2019-07-31] MEDS: Acetaminophen 325 MG TAB PO PRN ×3 (07:53→23:13)
[2019-07-31] MEDS: Estradiol 1 MG TAB PO SCH (08:01)
[2019-07-31] MEDS: Mupirocin 2% Ointment 22 GM Tube TOP SCH ×2 (08:03→20:06)
--- NOTE | 2019-07-31 11:30 | PRG ---
DATE OF SERVICE: 07/31/2019 SUBJECTIVE: The patient says she is feeling good this morning. Her pain is well controlled. She has already been to therapy this morning. She is doing better with learning to do the toe touching on the right leg. She is able to use a platform on the left to put more weight to assist her. Her granddaughter whom she lives with was called and checking on her and trying to arrange what level of care she will need once she gets home. OBJECTIVE: GENERAL: The patient is sitting up in a bedside chair. She is alert, talkative, smiling, appears comfortable and in no distress. Nurse reports the wound on the vulva has almost healed. VITAL SIGNS: Show a temperature of 97.9, pulse 69, respirations 16, O2 saturation on room air 98%, blood pressure 129/59. LUNGS: Clear. HEART: Irregularly irregular rhythm. EXTREMITIES: Left arm, the patient is in a removable forearm splint. The arm looks very comfortable. Lower extremities have no edema. ASSESSMENT: 1. Generalized weakness. a. Following a fall resulting in a right hip fracture and fracture of the right distal radius on 06/28. b. Prior to the fall, the patient was independent of all her ADLs. c. The patient is doing better. She seems to be learning the toe touching on the right leg, using her platform walker as of 07/30. 2. Subtrochanteric fracture of the right hip secondary to a fall on 06/28. a. Status post cephalomedullary nailing by Dr. Maikel Wong, Orthopedic Surgeon on 06/30/2019. b. The incision healed. Pain well controlled. c. Visit with Dr. Wong on 07/27 with x-ray showed collapse and loss of reduction of the fracture. The patient was placed on just toe-touch weightbearing and will be re-evaluated 4 weeks from the visit with repeat x-rays. 3. Closed undisplaced fracture of the left distal radius. a. Secondary to a fall on 06/28. b. Managed with a fiberglass cast for 4 weeks. Cast removal on 07/27, and replaced with a removable forearm splint. 4. Chronic atrial fibrillation. a. Rate control. b. On chronic anticoagulation with Eliquis. 5. Status post pacemaker insertion. 6. History of congestive failure. a. No evidence of acute congestive heart failure. 7. Coronary artery disease. Asymptomatic. 8. Hypertension. 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 10. Anemia. a. Improved with hemoglobin of 9.2 as of 07/27. 11. Hypothyroidism. 12. Ulcer in the left vulva, almost healed. 13. Urinary retention. a. Catheter removed on 07/20. b. Voiding without difficulty as of 07/30. PLAN: Continue present care. Continue PT and OT. Once the patient does better with her toe touching, consideration can be given to discharge if the family feels like she is at a point where they can safely manage her. We will reassess this in a week. Job ID: [id number] MTDD
[2019-07-31] MEDS: cloNIDine 0.1 MG TAB PO SCH (20:06)
[2019-07-31] MEDS: Atorvastatin Calcium 10 MG TAB PO SCH (20:06)
[2019-08-01] MEDS: Acetaminophen/Codeine 30-300mg Tablet PO PRN ×4 (03:29→21:03)
[2019-08-01] MEDS: Levothyroxine Sodium 75 MCG TAB PO SCH (06:01)
[2019-08-01] MEDS: Calcium Carbonate 500 MG TAB PO SCH (07:59)
[2019-08-01] MEDS: Estradiol 1 MG TAB PO SCH (07:59)
[2019-08-01] MEDS: Lisinopril 20 MG TAB PO SCH (08:00)
[2019-08-01] MEDS: Apixaban 5 MG TAB PO SCH ×2 (08:00→20:27)
[2019-08-01] MEDS: Senokot S 8.6-50 MG TAB PO SCH (08:00)
[2019-08-01] MEDS: Carvedilol 12.5 MG TAB PO SCH ×2 (08:00→20:27)
[2019-08-01] MEDS: Ferrous Sulfate 325 MG TAB PO SCH (08:01)
[2019-08-01] MEDS: Mupirocin 2% Ointment 22 GM Tube TOP SCH ×2 (08:08→22:00)
[2019-08-01] MEDS: Acetaminophen 325 MG TAB PO PRN (12:50)
[2019-08-01] MEDS: cloNIDine 0.1 MG TAB PO SCH (20:27)
[2019-08-01] MEDS: Atorvastatin Calcium 10 MG TAB PO SCH (20:27)
[2019-08-01] MEDS ORDERED: Acetaminophen/Codeine 30-300mg Tablet PO SCH (22:00)
[2019-08-02] MEDS: Levothyroxine Sodium 75 MCG TAB PO SCH (05:46)
--- NOTE | 2019-08-02 07:55 | PRG ---
DATE OF SERVICE: 08/01/2019 SUBJECTIVE: The patient is sitting up in her geriatric chair. She said she is feeling good this morning. Over the last couple of days, she has been complaining of some pain up in the left shoulder and left posterior neck. They have placed [employer] pump, which provides moist heat on that area and this has helped a lot. I feel like this is just musculoskeletal pain from her modified way of walking using the platform walker since she is now only toe-touch with the right leg. She said she is doing good otherwise. The nurse reports that the place on her vulva area just practically healed. OBJECTIVE: GENERAL: The patient looks very comfortable with smiling, sitting in her geriatric chair. VITAL SIGNS: Temperature 97.9, blood pressure 147/83, respirations 18, O2 sat 97% on room air. LUNGS: Clear. HEART: Irregularly irregular rhythm. EXTREMITIES: Left arm is in a removable forearm splint. The lower extremities have no edema. The patient is walking now up to 15 feet with toe touching with the right leg using her platform walker. ASSESSMENT: 1. Generalized weakness. a. Following a fall with fracture of the right hip, fracture of the right distal radius on 06/28. b. Prior to the fall, the patient was independent of all her ADLs. c. The patient is doing a little better. She is walking now up to 15 feet with only toe touching on the right leg, using a platform walker as of 07/31. 2. Subtrochanteric fracture of the right hip secondary to fall on 06/28. a. Status post cephalomedullary nailing by Dr. Maikel Wong, orthopedic surgeon, on 06/30/2019. b. Incision healed. Pain well controlled. c. Visit with Dr. Wong on 07/27 with an x-ray that showed some collapse and loss of reduction of the fracture. The patient has been on toe-touch weightbearing only and re-evaluate with repeat x-rays in 4 weeks. 3. Closed undisplaced fracture of the left distal radius. a. Secondary to fall on 06/28. b. Managed with a fiberglass cast for 4 weeks. Cast removal on 07/27, and the patient switched to a removable forearm splint. 4. Chronic atrial fibrillation. a. Rate control. b. On chronic anticoagulant with Eliquis. 5. Status post pacemaker insertion. 6. History of congestive heart failure. a. No evidence of acute congestive heart failure. 7. Coronary artery disease, asymptomatic. 8. Hypertension. 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 10. Anemia. a. Improved hemoglobin of 9.2 on 07/27. 11. Hypothyroidism. 12. Ulcer of the left vulva, healing. 13. Urinary retention. a. Catheter removed on 07/20. b. Voiding without difficulty as of 07/31. PLAN: Continue present care. Continue PT. The pain in the neck and shoulder probably from when she has had to modify her walking and this is being addressed with her [employer] pump, which is providing the moist heat. Job ID: [id number] MTDD
[2019-08-02] MEDS: Ferrous Sulfate 325 MG TAB PO SCH (08:43)
[2019-08-02] MEDS: Senokot S 8.6-50 MG TAB PO SCH (08:43)
[2019-08-02] MEDS: Calcium Carbonate 500 MG TAB PO SCH (08:43)
[2019-08-02] MEDS: Lisinopril 20 MG TAB PO SCH (08:44)
[2019-08-02] MEDS: Apixaban 5 MG TAB PO SCH ×2 (08:44→20:41)
[2019-08-02] MEDS: Estradiol 1 MG TAB PO SCH (08:44)
[2019-08-02] MEDS: Carvedilol 12.5 MG TAB PO SCH ×2 (08:44→20:41)
[2019-08-02] MEDS: Mupirocin 2% Ointment 22 GM Tube TOP SCH ×2 (08:45→21:00)
[2019-08-02] MEDS: Acetaminophen/Codeine 30-300mg Tablet PO PRN ×2 (10:00→18:32)
[2019-08-02] MEDS: cloNIDine 0.1 MG TAB PO SCH (20:41)
[2019-08-02] MEDS: Atorvastatin Calcium 10 MG TAB PO SCH (20:41)
[2019-08-03] MEDS: Acetaminophen/Codeine 30-300mg Tablet PO PRN ×3 (02:43→18:30)
[2019-08-03] MEDS: Levothyroxine Sodium 75 MCG TAB PO SCH (06:06)
[2019-08-03] MEDS: Estradiol 1 MG TAB PO SCH (07:55)
[2019-08-03] MEDS: Lisinopril 20 MG TAB PO SCH (07:56)
[2019-08-03] MEDS: Calcium Carbonate 500 MG TAB PO SCH (07:56)
[2019-08-03] MEDS: Senokot S 8.6-50 MG TAB PO SCH (07:58)
[2019-08-03] MEDS: Carvedilol 12.5 MG TAB PO SCH ×2 (07:58→20:40)
[2019-08-03] MEDS: Ferrous Sulfate 325 MG TAB PO SCH (07:58)
[2019-08-03] MEDS: Mupirocin 2% Ointment 22 GM Tube TOP SCH ×2 (07:59→20:46)
[2019-08-03] MEDS: Apixaban 5 MG TAB PO SCH ×2 (07:59→20:39)
[2019-08-03] MEDS: Atorvastatin Calcium 10 MG TAB PO SCH (20:39)
[2019-08-03] MEDS: cloNIDine 0.1 MG TAB PO SCH (20:40)
[2019-08-03] MEDS: Acetaminophen 325 MG TAB PO PRN (20:41)
[2019-08-04] MEDS: Acetaminophen/Codeine 30-300mg Tablet PO PRN ×3 (00:18→17:54)
[2019-08-04] MEDS: Levothyroxine Sodium 75 MCG TAB PO SCH (05:08)
[2019-08-04 05:23] LABS: Hemoglobin 9.3 g/dL (12.0-16.0); Platelet Count 331 thou/uL (130-400)
[2019-08-04] MEDS: Estradiol 1 MG TAB PO SCH (08:15)
[2019-08-04] MEDS: Apixaban 5 MG TAB PO SCH ×2 (08:16→20:23)
[2019-08-04] MEDS: Ferrous Sulfate 325 MG TAB PO SCH (08:16)
[2019-08-04] MEDS: Senokot S 8.6-50 MG TAB PO SCH ×3 (08:16→12:56)
[2019-08-04] MEDS: Lisinopril 20 MG TAB PO SCH (08:16)
[2019-08-04] MEDS: Calcium Carbonate 500 MG TAB PO SCH (08:16)
--- NOTE | 2019-08-04 10:44 | PRG ---
DATE OF SERVICE: 08/04/2019 SUBJECTIVE: The patient has just been working with physical therapy. She is walking up to 30 feet with her platform walker and toe touching with the right leg. She has been doing better. She is asking for something to help her sleep. Nurses have noticed that she is having to urinate a little more often, but denies any dysuria. The patient is having still some pain in her left posterior neck and shoulder that is being managed with her analgesics and moist heat. OBJECTIVE: GENERAL: The patient is just returning from physical therapy and sat in her Lu chair, she is alert, appears in no distress. She is wearing her wrist immobilizer and she appears in no distress. VITAL SIGNS: Show a temperature 98.3, pulse 72, respirations 16, O2 saturation 99% on room air, blood pressure 151/76. LUNGS: Clear. HEART: Irregularly irregular rhythm. EXTREMITIES: Left wrist, the patient has good motion in her fingers and fair motion in the wrist. She has the wrist immobilizer on. Her lower extremities have no edema. LABORATORY DATA: Her creatinine is down to 1.01, GFR up to 52. H and H of 9.3 and 30.4 with a platelet count of 331,000. ASSESSMENT: 1. Generalized weakness. a. Following a fall with fracture of the right hip and fracture of the left distal radius on 06/28. b. Prior to the fall, the patient was independent of all her ADLs. c. The patient is doing better. She is now walking up to 30 feet with a platform walker with toe touching with the right leg as of 08/03. 2. Subtrochanteric fracture of the right hip secondary to a fall on 06/28. a. Status post cephalomedullary nailing by Dr. Maikel Wong, orthopedic surgeon, on 06/30/2019. b. Incision healed. Pain controlled. c. Visit with Dr. Wong on 07/27 with x-ray showed some collapse, loss of reduction of the fracture. The patient has been placed on toe touching weightbearing with the right leg and will be re-evaluated in 4 weeks. d. Improving, walking now up to 30 feet with toe touching using platform walker. 3. Closed undisplaced fracture of the left distal radius. a. Secondary to a fall on 06/28. b. Managed with fiberglass cast for 4 weeks. Since 07/27 in a wrist immobilizer. 4. Chronic atrial fibrillation. a. Rate control. b. On chronic anticoagulant with Eliquis. 5. Status post pacemaker insertion. 6. History of congestive heart failure. a. No evidence of acute congestive heart failure. 7. Coronary artery disease, asymptomatic. 8. Hypertension. 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 10. Anemia. a. Hemoglobin 9.3 as of 08/03. 11. Hypothyroidism. 12. Ulcer of the left vulva healing. 13. Urinary retention. a. Catheter removed on 07/20. b. Voiding without difficulty, but having some increased frequency as of . PLAN: Continue present care. Continue PT and OT. We will try the patient on melatonin at night to help with her sleep. We will check a UA. Job ID: [id number] MTDD
[2019-08-04] MEDS: Carvedilol 12.5 MG TAB PO SCH ×2 (12:44→20:23)
[2019-08-04] MEDS: Mupirocin 2% Ointment 22 GM Tube TOP SCH ×2 (12:50→21:10)
[2019-08-04 13:21] LABS: Bilirubin Negative (Negative); Blood, Urine Small (Negative); Clarity Cloudy (Clear); Glucose, Urine (Dipstick) Negative (Negative); Leukocyte Moderate (Negative); Nitrite Negative (Negative); Protein, Urine (Dipstick) Negative (Neg-Trace); Urobilinogen 0.2 mg/dL (Less than 2)
[2019-08-04 13:35] LABS: Bacteria/HPF 4+ HPF (None Seen); Squamous Epithelial 0-3 HPF (0-3); WBC/HPF Greater Than 50 HPF (0-3)
[2019-08-04] MEDS: Ciprofloxacin 500 MG TAB PO SCH (20:23)
[2019-08-04] MEDS: Atorvastatin Calcium 10 MG TAB PO SCH (20:23)
[2019-08-04] MEDS: cloNIDine 0.1 MG TAB PO SCH (20:24)
[2019-08-04] MEDS: Melatonin 3 MG TAB PO PRN (20:24)
[2019-08-05] MEDS: Acetaminophen/Codeine 30-300mg Tablet PO PRN ×4 (02:39→23:49)
[2019-08-05] MEDS: Levothyroxine Sodium 75 MCG TAB PO SCH (05:04)
[2019-08-05] MEDS: Ciprofloxacin 500 MG TAB PO SCH ×2 (05:05→20:35)
[2019-08-05] MEDS: Estradiol 1 MG TAB PO SCH (08:31)
[2019-08-05] MEDS: Senokot S 8.6-50 MG TAB PO SCH (08:31)
[2019-08-05] MEDS: Carvedilol 12.5 MG TAB PO SCH ×2 (08:31→20:35)
[2019-08-05] MEDS: Lisinopril 20 MG TAB PO SCH (08:32)
[2019-08-05] MEDS: Ferrous Sulfate 325 MG TAB PO SCH (08:32)
[2019-08-05] MEDS: Mupirocin 2% Ointment 22 GM Tube TOP SCH ×3 (08:32→21:53)
[2019-08-05] MEDS: Calcium Carbonate 500 MG TAB PO SCH (08:32)
[2019-08-05] MEDS: Apixaban 5 MG TAB PO SCH ×2 (08:32→20:35)
--- NOTE | 2019-08-05 09:24 | PRG ---
DATE OF SERVICE: 08/05/2019 SUBJECTIVE: The patient says she is doing good today. She had no complaint. The occupational therapist and physical therapist had checked with her surgeon, and she is allowed full weightbearing with that left wrist. They have removed the platform to support that left arm. Now, she is holding and weightbearing with that left hand. Therapist reports she is doing well with her toe-touching with the right foot. Yesterday, her urinalysis came back and showed wbc's greater than 50, nitrite was negative. Culture was set up, and the patient started on Cipro 500 mg twice a day for 7 days. OBJECTIVE: GENERAL: The patient is just returning from the bathroom with help of therapist. She is doing very well with her ambulation with a walker and partial weightbearing on that right leg. She appears comfortable and in no distress. VITAL SIGNS: Her temperature is 98.8, pulse 75, respirations 16, O2 saturation 96% on room air, blood pressure 122/70. LUNGS: Clear. HEART: Irregularly irregular rhythm. EXTREMITIES: No edema. ASSESSMENT: 1. Generalized weakness. a. Following a fall with fracture of the right hip and fracture of the left distal radius on 06/28. b. Prior to the fall, the patient was independent of all her ADLs. c. The patient is progressing. She is now walking up to 30 feet with a rolling walker and toe-touching on the right leg as of 08/04. 2. Subtrochanteric fracture of the right hip secondary to a fall on 06/28. a. Status post cephalomedullary nailing by Dr. Maikel Wong, orthopedic surgeon, on 06/30/2019. b. Incision healed. Pain controlled. c. Visit with Dr. Wong on 07/27 with x-ray showed some collapse and loss of the reduction of the fracture. The patient was placed on toe-touch weightbearing on that right leg, and we will re-evaluate in 4 weeks. d. Improving. Walking better with just a walker and toe-touching walking up to 30 feet. 3. Closed nondisplaced fracture of the left distal radius. a. Secondary to fall on 06/28. b. Initially managed with fiberglass cast for 4 weeks. Since 07/27, cast removed and the patient in a wrist immobilizer and doing very well as of 2019. 4. Chronic atrial fibrillation. a. Rate control. b. On chronic anticoagulation with Eliquis. 5. Status post pacemaker insertion. 6. History of congestive heart failure. a. No evidence of acute congestive heart failure. 7. Coronary artery disease. a. Asymptomatic. 8. Hypertension. 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 10. Anemia. a. Hemoglobin 9.3 on 08/03. 11. Hypothyroidism. 12. Ulcer on the left vulva almost totally healed. 13. Urinary retention. a. Catheter removed on 07/20. b. Voiding without difficulty as of 08/04. 14. Urinary tract infection. a. Started on Cipro on 08/03. b. Urine culture pending. PLAN: Continue present care. Continue PT and OT. Job ID: [id number] [facility]
[2019-08-05] MEDS: Atorvastatin Calcium 10 MG TAB PO SCH (20:35)
[2019-08-05] MEDS: cloNIDine 0.1 MG TAB PO SCH (20:35)
[2019-08-05] MEDS: Melatonin 3 MG TAB PO PRN (23:50)
[2019-08-06] MEDS: Ciprofloxacin 500 MG TAB PO SCH ×2 (05:06→20:03)
[2019-08-06] MEDS: Levothyroxine Sodium 75 MCG TAB PO SCH (05:06)
[2019-08-06] MEDS: Mupirocin 2% Ointment 22 GM Tube TOP SCH ×2 (08:49→20:08)
[2019-08-06] MEDS: Ferrous Sulfate 325 MG TAB PO SCH (08:49)
[2019-08-06] MEDS: Carvedilol 12.5 MG TAB PO SCH ×2 (08:49→20:05)
[2019-08-06] MEDS: Estradiol 1 MG TAB PO SCH (08:49)
[2019-08-06] MEDS: Apixaban 2.5 MG TAB PO SCH ×2 (08:49→20:06)
[2019-08-06] MEDS: Lisinopril 20 MG TAB PO SCH (08:49)
[2019-08-06] MEDS: Calcium Carbonate 500 MG TAB PO SCH (08:49)
[2019-08-06] MEDS: Senokot S 8.6-50 MG TAB PO SCH (08:49)
[2019-08-06] MEDS: Acetaminophen/Codeine 30-300mg Tablet PO PRN ×2 (08:50→16:02)
--- NOTE | 2019-08-06 11:11 | PRG ---
DATE OF SERVICE: 08/06/2019 SUBJECTIVE: The patient is doing good today. Nurses said she is not having to urinate as frequently since she has started the antibiotics. She does not have any dysuria. Overall, she is doing better. She is walking a little better, using her walker and transferring a little easier. She seems to be very comfortable. OBJECTIVE: GENERAL: The patient is just walking back with standby assistance using her walker from the bathroom to her Lu chair. She was able to sit down. She looks comfortable, in no distress. VITAL SIGNS: Her vital signs show a temperature of 97.8, pulse 65, respirations 16, O2 saturation 98% on room air, and blood pressure 144/64. LUNGS: Clear. HEART: Regular rate. EXTREMITIES: No edema. LABORATORY DATA: Urine culture at 12 hours have no growth. ASSESSMENT: 1. Generalized weakness. a. Following a fall with fracture of the right hip and fracture of the left distal radius on 06/29/2019. b. Prior to fall, the patient was independent of all her ADLs. c. The patient is improving. She is now walking at least 30 feet with a rolling walker with toe-touch on the right leg and transferring better as of . 2. Subtrochanteric fracture of the right hip secondary to a fall on 06/28. a. Status post cephalomedullary nailing by Dr. Maikel Wong, orthopedic surgeon, on 06/30/2019. b. Incision healed. Pain controlled. c. Visit with Dr. Wong on 07/27 with x-ray, it showed some collapse and loss of reduction of the fracture. The patient placed on toe touching weightbearing with right leg and will re-evaluate in 4 weeks. d. Improving. Walking better using a walker and toe touching and walking at least 30 feet as of 08/05. 3. Closed undisplaced fracture of the left distal radius. a. Secondary to a fall on 06/28. b. Initially, managed with fiberglass cast for 4 weeks. Since 07/28/2019 cast has been removed, and the patient is using a wrist immobilizer. Now, able to full weight bear with that left wrist. 4. Chronic atrial fibrillation. a. Rate controlled. b. On chronic anticoagulation. 5. Status post pacemaker insertion. 6. History of congestive heart failure. a. No evidence of acute congestive heart failure. 7. Coronary artery disease. a. Asymptomatic. 8. Hypertension. 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 10. Anemia. a. Hemoglobin 9.3 on 08/03. 11. Hypothyroidism. 12. Ulcer in the left vulva, almost healed. 13. Urinary retention. a. Catheter removed on 07/20. b. Voiding without difficulty as of 08/04. 14. Urinary tract infection. a. Cipro started on 08/03. b. Asymptomatic. c. Culture at 12 hours, no growth as of 08/05. PLAN: Continue present care. Continue PT and OT. [facility] ID: [id number] [facility]
[2019-08-06] MEDS: Acetaminophen 325 MG TAB PO PRN (20:04)
[2019-08-06] MEDS: Atorvastatin Calcium 10 MG TAB PO SCH (20:05)
[2019-08-06] MEDS: cloNIDine 0.1 MG TAB PO SCH (20:06)
[2019-08-07] MEDS: Acetaminophen/Codeine 30-300mg Tablet PO PRN ×2 (00:29→08:15)
[2019-08-07] MEDS: Acetaminophen 325 MG TAB PO PRN ×2 (03:35→20:28)
[2019-08-07] MEDS: Levothyroxine Sodium 75 MCG TAB PO SCH (05:35)
[2019-08-07] MEDS: Calcium Carbonate 500 MG TAB PO SCH (08:13)
[2019-08-07] MEDS: Senokot S 8.6-50 MG TAB PO SCH (08:13)
[2019-08-07] MEDS: Ferrous Sulfate 325 MG TAB PO SCH (08:14)
[2019-08-07] MEDS: Carvedilol 12.5 MG TAB PO SCH ×2 (08:14→20:29)
[2019-08-07] MEDS: Lisinopril 20 MG TAB PO SCH (08:14)
[2019-08-07] MEDS: Apixaban 2.5 MG TAB PO SCH ×2 (08:14→20:30)
[2019-08-07] MEDS: Estradiol 1 MG TAB PO SCH (08:14)
[2019-08-07] MEDS: Polyethylene Glycol 3350 17 GM Packet PO PRN (08:16)
--- NOTE | 2019-08-07 09:41 | PRG ---
DATE OF SERVICE: 08/07/2019 SUBJECTIVE: The patient says she is doing good. She is around with physical therapy, they only let her walk up to about 25 feet today. As she gets tired, she starts weightbearing a little more on the right leg. She is still having some pain in the hip. Nurses said that she is getting the Tylenol No.3 one tablet about every 6 hours pretty regularly and it seemed like she is needing it before that. We will try putting this at 4-hour intervals and see if this will help. She does get good relief from the one Tylenol No.3. She said her wrist is doing good. OBJECTIVE: GENERAL: The patient is sitting in a wheelchair, working with Physical Therapy. She is alert, appears comfortable, and in no distress. VITAL SIGNS: Show a temperature of 97.4, pulse 99, respirations 20, O2 saturation 96% on room air, and blood pressure 114/69. LUNGS: Clear. HEART: Irregularly irregular rhythm. EXTREMITIES: No edema. Bruising on the right leg is all resolved. GENITOURINARY: The ulceration of the left vulva is healed. LABORATORY DATA: The urine culture has no growth at 36 hours. ASSESSMENT: 1. Generalized weakness. a. Following a fall with fracture of the right hip and left distal radius on 06/29/2019. b. Prior to the fall, the patient was independent of all her ADLs. c. The patient is improving. She is now walking up to 30 feet with a rolling walker with toe touching of the right leg. Transferring better as of 08/06. 2. Subtrochanteric fracture of the right hip secondary to a fall on 06/28. a. Status post cephalomedullary nailing by Dr. Maiekl Wong, orthopedic surgeon, on 06/30/2019. b. Incision healed. Pain controlled, but 6-hour interval not quite holding with the Tylenol No.3. c. Visit with Dr. Wong on 07/27, with x-ray showed some collapse and loss of the reduction of the fracture. The patient has since been on toe touching weightbearing with right leg, scheduled for re-evaluation in four weeks. d. Improving. Walking better with just the toe touching, but fatigues and begins applying a little more weight on that right side. Still having some pain in that right hip as of 08/06. 3. Closed undisplaced fracture of the left distal radius. a. Secondary to a fall on 06/28. b. Initially managed with a fiberglass cast for four weeks. Cast removed on 07/27 and the patient has since been in a wrist immobilizer. Able to bear full weight with that left wrist. c. Improving as of 08/06. 4. Chronic atrial fibrillation. a. Rate controlled. b. On chronic anticoagulation. 5. Status post pacemaker insertion. 6. History of congestive heart failure. a. No evidence of acute congestive heart failure. 7. Coronary artery disease, asymptomatic. 8. Hypertension. 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 10. Anemia. a. Hemoglobin 9.3 on 08/03. 11. Hypothyroidism. 12. Ulcer on the left vulva, healed as of 08/06. 13. Urinary retention. a. Catheter removed on 07/20. b. Voiding without difficulty as of 08/06. 14. Urinary tract infection. a. Cipro started on 08/03. b. Asymptomatic. c. Culture at 36 hours, no growth as of 08/06. PLAN: We will increase her Tylenol No.3 to one every 4 hours as needed. Continue PT and OT. Therapists are progressing her within her capabilities and pain tolerance. Will complete a three-day course of the Cipro and then discontinue. Job ID: [id number] MTDD
[2019-08-07] MEDS: Mupirocin 2% Ointment 22 GM Tube TOP SCH ×2 (10:49→21:04)
[2019-08-07] MEDS: Atorvastatin Calcium 10 MG TAB PO SCH (20:30)
[2019-08-07] MEDS: cloNIDine 0.1 MG TAB PO SCH (20:30)
[2019-08-08] MEDS: Acetaminophen/Codeine 30-300mg Tablet PO PRN (00:03)
[2019-08-08] MEDS: Levothyroxine Sodium 75 MCG TAB PO SCH (05:46)
[2019-08-08] MEDS: Carvedilol 12.5 MG TAB PO SCH ×2 (08:31→21:14)
[2019-08-08] MEDS: Estradiol 1 MG TAB PO SCH (08:31)
[2019-08-08] MEDS: Calcium Carbonate 500 MG TAB PO SCH (08:31)
[2019-08-08] MEDS: Lisinopril 20 MG TAB PO SCH (08:31)
[2019-08-08] MEDS: Apixaban 2.5 MG TAB PO SCH ×2 (08:31→21:13)
[2019-08-08] MEDS: Senokot S 8.6-50 MG TAB PO SCH (08:35)
[2019-08-08] MEDS: Ferrous Sulfate 325 MG TAB PO SCH (08:35)
[2019-08-08] MEDS: Mupirocin 2% Ointment 22 GM Tube TOP SCH ×2 (08:36→21:14)
[2019-08-08] MEDS ORDERED: Acetaminophen/Codeine 30-300mg Tablet PO PRN (10:22)
[2019-08-08] MEDS ORDERED: Acetaminophen 325 MG TAB PO PRN (10:22)
--- NOTE | 2019-08-08 12:12 | PRG ---
DATE OF SERVICE: 08/08/2019 SUBJECTIVE: The patient said she is doing good this morning. She has already been to Physical Therapy. She is smiling and very talkative. Nurse reported last night that she had some Tylenol and then some Tylenol No.3, and during the night, she had some confusion. Her Tylenol No.3 had just been increased to every 4 hours as needed, which may be the source of the increased confusion. She has had trouble previously with the hydrocodone and also the tramadol, and has done best on the lower dose of the analgesics. We will cut this back to every 6 hours and continue the Tylenol. OBJECTIVE: GENERAL: The patient is sitting up in a geriatric chair. She is smiling and talking and appears in no distress. VITAL SIGNS: Show a temp 99, pulse 82, respirations 18, O2 saturation 96% on room air, blood pressure 139/56. LUNGS: Clear. HEART: Irregularly irregular rhythm. EXTREMITIES: Left wrist is in a wrist splint. She has good motion in the fingers. Her lower extremities have no edema. ASSESSMENT: 1. Generalized weakness. a. Following a fall with a fracture of the right hip and left distal radius on 06/29/2019. b. Prior to fall, the patient was independent of all her ADLs. c. The patient is improving, walking up to 30 feet with a rolling walker with toe touching with the right leg. Transferring better. 2. Subtrochanteric fracture of the right hip secondary to a fall on 06/28. a. Status post cephalomedullary nailing by Dr. Maikel Wong orthopedic surgeon, on 06/30/2019. The incision healed. b. Pain reasonably controlled. c. Visit with Dr. Wong on 07/27, with x-ray showed some collapse, loss of the reduction of the fracture. The patient has since been placed on toe- touching weightbearing with the right leg. Scheduled for re-evaluation in 4 weeks. d. Improving, walking better with the toe-touching as of 08/07. 3. Closed undisplaced fracture of the left distal radius. a. Secondary to a fall on 06/28. b. Initially managed with fiberglass cast for 4 weeks. Cast removed on , and the patient placed in a wrist immobilizer. Able to bear full weight with the left wrist. c. Improved function of the left wrist as of 08/07. 4. Chronic atrial fibrillation. a. Rate controlled. b. On chronic anticoagulation. c. Status post pacemaker insertion. 5. History of congestive heart failure. a. No evidence of acute congestive heart failure. 6. Coronary artery disease. a. Asymptomatic. 7. Hypertension. 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 9. Anemia. a. Hemoglobin 9.3 on 08/03. 10. Hypothyroidism. 11. Ulcer on the left vulva, healed. 12. Urinary retention. a. Catheter removed on 07/20. b. Voiding without difficulty as of 08/07. 13. Urinary tract infection. a. Cipro started on 08/03. b. Asymptomatic. c. Culture at 36 hours, no growth on 08/06. Cipro stopped. d. The patient asymptomatic. PLAN: The patient had the little confusion during the night, possibly secondary to the change in the interval of the Tylenol No. 3 to 4 hours instead of 6. I do not see that she is receiving anything else that might be contributing to this and this was just increased and followed by the confusion. We will cut back the interval to every 6 hours. We will use the Tylenol 650 every 4 hours if needed. Continue PT and OT. Job ID: [id number] [facility]
[2019-08-08] MEDS ORDERED: Milk Of Magnesia 30 ML UDCUP PO PRN (13:36)
[2019-08-08] MEDS ORDERED: risperiDONE 0.5 MG TAB PO SCH ×2 (15:15→22:45)
[2019-08-08 15:20] LABS: #Basophils 0.1 thou/uL (0.0-0.2); #Eosinphils 0.3 thou/uL (0.0-0.7); #Lymphocytes 2.3 thou/uL (1.20-3.40); #Monocytes 1.1 thou/uL (0.11-0.59); #Neutrophils 6.9 thou/uL (1.40-6.50); %Basophils 0.5 % (0.0-1.0); %Eosinophils 3.1 % (0.0-10.0); %Lymphocytes 21.9 % (21.0-51.0); %Neutrophils 64.5 % (42.0-75.0); Hemoglobin 9.5 g/dL (12.0-16.0); Mean Corpuscular HGB CONC 31.3 g/dL (32.0-36.0); Mean Corpuscular Hemoglobin 28.6 pg (27.0-31.0); Mean Corpuscular Volume 91.4 fL (78.0-98.0); Mean Platelet Volume 7.1 fL (7.4-10.4); Platelet Count 395 thou/uL (130-400); RBC Distribution Width 15.6 % (11.5-14.5); Red Blood Cell (RBC) Count 3.32 mill/uL (4.20-5.40); White Blood Cell (WBC) Count 10.6 thou/uL (4.8-10.8)
[2019-08-08 15:35] LABS: ALT (SGPT) 10 U/L (8-55); AST (SGOT) 18 U/L (5-34); Albumin 3.5 g/dL (3.4-4.8); Alkaline Phosphatase 237 U/L (40-110); Anion Gap 16 mmol/L (10-20); BUN (Urea Nitrogen) 14 mg/dL (9.8-20.1); Bilirubin, Total 0.3 mg/dL (0.2-1.2); Calc. Creatinine Clearance 28 mL/min (70-130); Carbon Dioxide 22 mmol/L (23-31); Chloride 101 mmol/L (98-107); Estimated GFR-MDRD 40; Globulin 4.1 g/dL (2.4-3.5); Glucose 130 mg/dL (83-110); Potassium 4.8 mmol/L (3.5-5.1); Protein, Total 7.6 g/dL (6.0-8.3); Sodium 134 mmol/L (136-145)
[2019-08-08] MEDS: risperiDONE 0.5 MG TAB PO SCH (21:13)
[2019-08-08] MEDS: Acetaminophen 500 MG TAB PO PRN (21:13)
[2019-08-08] MEDS: cloNIDine 0.1 MG TAB PO SCH (21:14)
[2019-08-08] MEDS: Atorvastatin Calcium 10 MG TAB PO SCH (21:14)
[2019-08-08] MEDS ORDERED: Lorazepam 1 MG TAB PO SCH (22:45)
[2019-08-09] MEDS: Levothyroxine Sodium 75 MCG TAB PO SCH (05:43)
[2019-08-09] MEDS: Apixaban 2.5 MG TAB PO SCH ×2 (08:36→19:58)
[2019-08-09] MEDS: Carvedilol 12.5 MG TAB PO SCH ×2 (08:36→19:58)
[2019-08-09] MEDS: Estradiol 1 MG TAB PO SCH (08:36)
[2019-08-09] MEDS: Lisinopril 20 MG TAB PO SCH (08:36)
[2019-08-09] MEDS: risperiDONE 0.5 MG TAB PO SCH ×2 (08:36→19:56)
[2019-08-09] MEDS: Senokot S 8.6-50 MG TAB PO SCH (08:37)
[2019-08-09] MEDS: Mupirocin 2% Ointment 22 GM Tube TOP SCH ×2 (08:37→20:05)
[2019-08-09] MEDS: Calcium Carbonate 500 MG TAB PO SCH (09:13)
[2019-08-09] MEDS: Ferrous Sulfate 325 MG TAB PO SCH (09:13)
[2019-08-09] MEDS: Acetaminophen 500 MG TAB PO PRN ×2 (09:13→14:47)
[2019-08-09] MEDS: Melatonin 3 MG TAB PO PRN (19:55)
[2019-08-09] MEDS: Atorvastatin Calcium 10 MG TAB PO SCH (19:58)
[2019-08-09] MEDS: cloNIDine 0.1 MG TAB PO SCH (19:58)
[2019-08-10] MEDS: Acetaminophen 500 MG TAB PO PRN ×2 (05:43→21:05)
[2019-08-10] MEDS: Levothyroxine Sodium 75 MCG TAB PO SCH (05:43)
--- NOTE | 2019-08-10 09:00 | PRG ---
DATE OF SERVICE: 08/09/2019 SUBJECTIVE: The patient yesterday became very confused and hallucinating. CBC and CMP were done that showed no acute changes that would account for this mental status change. She was started on risperidone 0.25 mg b.i.d. Last evening, she remained confused and hallucinating and was very agitated in spite of her evening dose of risperidone. She was given an additional dose of risperidone and lorazepam 1 mg. Her granddaughter with whom she lives came up and stayed with her. She had a restless sleepless night. This morning, her great-granddaughter is with her. She is up in her geriatric chair, and the nurses say she is a lot calmer today. She is not cussing. She did eat. She is using only Tylenol for pain, and this seems to be working. She seems better today, but confusion and hallucinations not totally resolved. OBJECTIVE: GENERAL: The patient is sitting in her chair, alert and talking, but is confused. Great-granddaughter, Christy, is with her. VITAL SIGNS: Show a temperature 98.1, pulse 88, respirations 16, O2 saturation 98% on room air, and blood pressure 163/73. LUNGS: Clear. HEART: Irregularly irregular rhythm. EXTREMITIES: No edema. Left arm has a wrist immobilizer on. LABORATORY DATA: Her lab yesterday showed an H and H of 9.5 and 30.3, white cell count 10,600 with 65% segs, 22% lymphocytes, and a platelet count of 395,000. Sodium 134, which is the same as it was last on 07/20, potassium 4.8, BUN 14, creatinine 1.25, GFR 40, glucose 139, alkaline phosphatase 237 secondary to recent surgery on her hip, and her urine culture had no growth. ASSESSMENT: 1. Acute encephalopathy. a. Suspect secondary to the effect of Tylenol 3 and probably also from the long separation from family. b. Improved as of the morning of 08/08, where she is more calm, but still a little confused and still hallucinating some. 2. Generalized weakness. a. Following a fall and fracture of the right hip and left distal radius on 06/29/2019. b. Prior to the fall, the patient was independent of all her ADLs. c. Her weakness has improved, and she is walking better with a rolling walker with only toe-touch weightbearing on the right leg. 3. Subtrochanteric fracture of the right hip secondary to fall on 06/28. a. Status post cephalomedullary nailing by Dr. Maikel Wong, orthopedic surgeon, on 06/30/2019. b. The incision healed. Pain reasonably controlled. c. Visit with Dr. Wong on 07/27 with x-ray showed some collapse, loss of the reduction of the fracture. The patient has since been on toe-touch weightbearing. Scheduled for re-evaluation 4 weeks after that visit. d. Improving and walking better. 4. Closed undisplaced fracture of the left distal radius. a. Secondary to fall on 06/28. b. Initially managed with a fiberglass cast for four weeks. c. Cast removed on 07/27 and now the patient in a wrist immobilizer. Full weightbearing allowed. 5. Chronic atrial fibrillation. a. Rate controlled. b. On chronic anticoagulation. 6. Status post pacemaker insertion. 7. History of congestive heart failure. a. No evidence of acute congestive heart failure. 8. Coronary artery disease. Asymptomatic. 9. Hypertension. 10. Blind in the left eye. 11. Anemia. a. Hemoglobin up to 9.5 as of 08/07. 12. Hypothyroidism. 13. Ulcer on the left vulva, healed. 14. Urinary retention. a. Catheter removed on 07/20. b. Voiding without difficulty as of 08/08. PLAN: The patient is a little better. I suspect that the encephalopathy is secondary to the recent increase in the frequency of the Tylenol 3 along with her prolonged separation from family. The Tylenol 3 has been stopped and she is getting Tylenol 500 mg two every 4 hours if needed for pain. She has been started on risperidone 0.25 mg b.i.d. The family is staying with her, which is a great solace and comfort for her. Visit with her great-granddaughter indicated that once her encephalopathy has resolved, I think it would be best to let her go home where she will be with family members. The great-granddaughter agrees and they will be making preparation for this. We will wait first and let this encephalopathy continue to improve. Job ID: [id number] [facility]
[2019-08-10] MEDS: Ferrous Sulfate 325 MG TAB PO SCH (09:13)
[2019-08-10] MEDS: Calcium Carbonate 500 MG TAB PO SCH (09:13)
[2019-08-10] MEDS: Senokot S 8.6-50 MG TAB PO SCH (09:14)
[2019-08-10] MEDS: Apixaban 2.5 MG TAB PO SCH ×2 (12:44→21:05)
[2019-08-10] MEDS: Carvedilol 12.5 MG TAB PO SCH ×2 (12:44→21:06)
[2019-08-10] MEDS: risperiDONE 0.5 MG TAB PO SCH ×2 (12:45→21:05)
[2019-08-10] MEDS: Mupirocin 2% Ointment 22 GM Tube TOP SCH ×2 (12:45→21:06)
[2019-08-10] MEDS: Lisinopril 20 MG TAB PO SCH (12:45)
[2019-08-10] MEDS: Estradiol 1 MG TAB PO SCH (12:45)
[2019-08-10] MEDS: cloNIDine 0.1 MG TAB PO SCH (21:05)
[2019-08-10] MEDS: Melatonin 3 MG TAB PO PRN (21:05)
[2019-08-10] MEDS: Atorvastatin Calcium 10 MG TAB PO SCH (21:06)
[2019-08-11] MEDS: Levothyroxine Sodium 75 MCG TAB PO SCH (05:18)
[2019-08-11 05:22] LABS: Hemoglobin 9.1 g/dL (12.0-16.0); Platelet Count 330 thou/uL (130-400)
[2019-08-11] MEDS: Calcium Carbonate 500 MG TAB PO SCH (08:34)
[2019-08-11] MEDS: Ferrous Sulfate 325 MG TAB PO SCH (08:34)
[2019-08-11] MEDS: risperiDONE 0.5 MG TAB PO SCH ×2 (08:34→20:56)
[2019-08-11] MEDS: Senokot S 8.6-50 MG TAB PO SCH (08:35)
[2019-08-11] MEDS: Apixaban 2.5 MG TAB PO SCH ×2 (08:35→20:53)
[2019-08-11] MEDS: Estradiol 1 MG TAB PO SCH (08:35)
[2019-08-11] MEDS: Carvedilol 12.5 MG TAB PO SCH ×2 (08:35→20:53)
[2019-08-11] MEDS: Lisinopril 20 MG TAB PO SCH (08:35)
[2019-08-11] MEDS: Mupirocin 2% Ointment 22 GM Tube TOP SCH ×2 (08:36→20:53)
[2019-08-11] MEDS: Acetaminophen 500 MG TAB PO PRN (08:43)
--- NOTE | 2019-08-11 10:31 | PRG ---
DATE OF SERVICE: 08/11/2019 SUBJECTIVE: The patient has just been helped up out of bed and was walking with her walker and toe-touch weightbearing on the right with the help of therapist. She was able to back up to the chair and sit down with coaching. She said she is feeling good this morning. She had no complaint. OBJECTIVE: GENERAL: The patient is sitting up in a chair. Appears very calm. Recognizes me. VITAL SIGNS: Her temp is 98, pulse 93, respirations 18, O2 saturation 97% on room air, and blood pressure 153/76. LUNGS: Clear. HEART: Irregularly irregular rhythm. EXTREMITIES: No edema in left wrist. The patient is wearing her wrist immobilizer. LABORATORY DATA: Her H and H are 9.1 and 29.2 and platelet count 330,000. GFR is 57. ASSESSMENT: 1. Acute encephalopathy: a. Suspect secondary to the effect of the Tylenol No.3 that has been stopped and from long separation from family. b. Continued improvement as of 08/10. The patient is very calm with no agitation. 2. Generalized weakness: a. Following a fall, fracture to the right hip and left distal radius on . b. Prior to the fall, the patient was independent of all her ADLs. c. Weakness is improved. Walking better with a rolling walker with only toe- touch weightbearing on the right. 3. Subtrochanteric fracture of the right hip secondary to a fall on 06/28. a. Status post cephalomedullary nailing by Dr. Maikel Wong, orthopedic surgeon, on 06/30/2019. b. Pain control. c. Visit with Dr. Wong on 07/27 with x-ray showed some collapse and loss of the reduction. The patient has since been placed on toe-touch weightbearing. Scheduled for re-evaluation in 1 month. d. Improving and walking better. 4. Closed undisplaced fracture of the left distal radius. a. Secondary to a fall on 06/28. b. Initially managed with fiberglass cast for 4 weeks. c. Cast removed on 07/27 and now in a wrist immobilizer with full weightbearing. Doing very well. 5. Chronic atrial fibrillation, rate controlled and on chronic anticoagulation. 6. Status post pacemaker insertion. 7. History of congestive heart failure. a. No evidence of acute congestive failure. 8. Coronary artery disease, asymptomatic. 9. Hypertension, controlled. 10. Blind in the left eye. 11. Anemia. a. Hemoglobin 9.1 On 08/10. 12. Hypothyroidism. 13. Ulcer on the left vulva, healed. 14. Urinary retention. a. Catheter removed on 07/20. b. Voiding without difficulty as of 08/10. PLAN: Continue present care. If the patient continues to do this well, will do a gradual reduction of the risperidone. For now, we will leave the dose the same. Continue PT and OT. Will try to discharge the patient to her home as soon as family feels like they could safely manage her. Job ID: [id number] [facility]
[2019-08-11] MEDS: cloNIDine 0.1 MG TAB PO SCH (20:53)
[2019-08-11] MEDS: Atorvastatin Calcium 10 MG TAB PO SCH (20:53)
[2019-08-12] MEDS: Melatonin 3 MG TAB PO PRN ×2 (00:36→21:15)
[2019-08-12] MEDS: Acetaminophen 500 MG TAB PO PRN ×3 (00:36→14:09)
[2019-08-12] MEDS: Levothyroxine Sodium 75 MCG TAB PO SCH (07:21)
[2019-08-12] MEDS: Ferrous Sulfate 325 MG TAB PO SCH (07:21)
[2019-08-12] MEDS: Calcium Carbonate 500 MG TAB PO SCH (07:21)
[2019-08-12] MEDS: Mupirocin 2% Ointment 22 GM Tube TOP SCH ×2 (09:13→21:14)
[2019-08-12] MEDS: Apixaban 2.5 MG TAB PO SCH ×2 (09:13→21:13)
[2019-08-12] MEDS: Carvedilol 12.5 MG TAB PO SCH ×2 (09:13→21:13)
[2019-08-12] MEDS: Estradiol 1 MG TAB PO SCH (09:13)
[2019-08-12] MEDS: Lisinopril 20 MG TAB PO SCH (09:13)
[2019-08-12] MEDS: Senokot S 8.6-50 MG TAB PO SCH (09:14)
--- NOTE | 2019-08-12 11:32 | PRG ---
DATE OF SERVICE: 08/12/2019 SUBJECTIVE: The patient was awake until around 3 this morning, then went to sleep. She had been a little sluggish this morning. She was complaining of some pain in the hip, but she has been given Tylenol for this. She has not had any hallucinations. OBJECTIVE: GENERAL: The patient is sitting up in the bed, answers me appropriately. Said her family is working to try to make arrangements for her to come home in a few days. The patient is in no acute distress. VITAL SIGNS: Temperature 98.3, pulse 84, respirations 15, O2 saturation 98% on room air, blood pressure 170/76. LUNGS: Clear. HEART: Irregularly irregular rhythm. EXTREMITIES: No edema. ASSESSMENT: 1. Acute encephalopathy. a. Suspect secondary to the effect of the Tylenol No. 3, that has been stopped and long separation from family. b. Continued improvement. No more periods of severe agitation or hallucinations as of 08/11. 2. Generalized weakness. a. Following a fall with fracture to the right hip and left distal radius on 06/29/2019. b. Prior to the fall, the patient was independent of all her ADLs. c. Weakness is improved, walking better with a rolling walker with only toe -touch weightbearing on the right. 3. Subtrochanteric fracture of the right hip secondary to a fall on 06/28. a. Status post cephalomedullary nail by Dr. Maikel Wong, orthopedic surgeon, on 06/30/2019. b. Pain control. c. Visit with Dr. Wong on 07/27 with x-ray showed collapse, loss of the reduction. The patient has since been only on toe-touch weightbearing. Scheduled for re-evaluation in a month. d. Doing better with walking as of 08/11. 4. Closed undisplaced fracture of the left distal radius. a. Secondary to a fall on 06/28. b. Initially managed with a fiberglass cast for 4 weeks. c. Cast removed on 07/27, now in a wrist immobilizer, full weightbearing, doing very well. 5. Chronic atrial fib, rate controlled, on chronic anticoagulation. 6. Status post pacemaker insertion. 7. History of congestive heart failure. a. No evidence of congestive failure. 8. Coronary artery disease, asymptomatic. 9. Hypertension. 10. Blind in the left eye. 11. Anemia. a. Hemoglobin 9.1 on 08/10. 12. Hypothyroidism. 13. Ulcer on the left vulva, healed. 14. Urinary retention. a. Catheter removed on 07/20. b. Voiding without difficulty as of 08/11. PLAN: Overall, the patient is doing better. The encephalopathy is resolving. She is sleepy this morning. We will stop the morning dose of risperidone. Continue PT and OT. I think the patient from a mental standpoint will do better once she is back in her home environment. Family is making these preparations. Continue PT and OT. Job ID: [id number] [facility]
[2019-08-12] MEDS: Atorvastatin Calcium 10 MG TAB PO SCH (21:13)
[2019-08-12] MEDS: cloNIDine 0.1 MG TAB PO SCH (21:14)
[2019-08-12] MEDS: risperiDONE 0.5 MG TAB PO SCH (21:15)
[2019-08-13] MEDS: Levothyroxine Sodium 75 MCG TAB PO SCH (06:15)
[2019-08-13] MEDS: Acetaminophen 500 MG TAB PO PRN ×2 (06:15→20:11)
[2019-08-13] MEDS: Carvedilol 12.5 MG TAB PO SCH ×2 (08:15→20:17)
[2019-08-13] MEDS: Lisinopril 20 MG TAB PO SCH (08:15)
[2019-08-13] MEDS: Estradiol 1 MG TAB PO SCH (08:15)
[2019-08-13] MEDS: Ferrous Sulfate 325 MG TAB PO SCH (08:16)
[2019-08-13] MEDS: Senokot S 8.6-50 MG TAB PO SCH (08:16)
[2019-08-13] MEDS: Apixaban 2.5 MG TAB PO SCH ×2 (08:16→20:17)
[2019-08-13] MEDS: Calcium Carbonate 500 MG TAB PO SCH (08:16)
[2019-08-13] MEDS: Mupirocin 2% Ointment 22 GM Tube TOP SCH ×2 (10:20→20:19)
[2019-08-13] MEDS: cloNIDine 0.1 MG TAB PO SCH (20:15)
[2019-08-13] MEDS: Atorvastatin Calcium 10 MG TAB PO SCH (20:17)
[2019-08-13] MEDS: risperiDONE 0.5 MG TAB PO SCH (20:17)
[2019-08-14] MEDS: Acetaminophen 500 MG TAB PO PRN ×2 (02:04→17:26)
[2019-08-14] MEDS: Levothyroxine Sodium 75 MCG TAB PO SCH (05:20)
[2019-08-14] MEDS: Senokot S 8.6-50 MG TAB PO SCH (08:29)
[2019-08-14] MEDS: Ferrous Sulfate 325 MG TAB PO SCH (08:29)
[2019-08-14] MEDS: Estradiol 1 MG TAB PO SCH (08:29)
[2019-08-14] MEDS: Calcium Carbonate 500 MG TAB PO SCH (08:29)
[2019-08-14] MEDS: Lisinopril 20 MG TAB PO SCH (08:29)
[2019-08-14] MEDS: Mupirocin 2% Ointment 22 GM Tube TOP SCH ×2 (08:30→20:03)
[2019-08-14] MEDS: Carvedilol 12.5 MG TAB PO SCH ×2 (08:30→20:03)
[2019-08-14] MEDS: Apixaban 2.5 MG TAB PO SCH ×2 (08:30→20:01)
[2019-08-14 11:39] VITALS: BMI 22.5
--- NOTE | 2019-08-14 13:16 | PRG ---
DATE OF SERVICE: 08/14/2019 SUBJECTIVE: The patient is sitting up in her chair, preparing to eat breakfast. She was talkative, appears very comfortable. Said she is looking forward to going home. Said her daughters are getting a few items that are needed and tentatively she will be going home on Sunday, 08/17. Nurse says she has some trouble sleeping at night, but the patient says she has the same trouble at home. They said she still has been a little confused, but she has been very pleasant and not angry or cussing and has not seemed to be hallucinating. She is still receiving the risperidone at bedtime, but morning dose has been stopped. OBJECTIVE: GENERAL: The patient is alert, appears comfortable, in no distress. VITAL SIGNS: Show a temperature of 97.7, pulse 87, respirations 16, O2 saturation 97% on room air, and blood pressure 171/88. LUNGS: Clear. HEART: Irregularly irregular rhythm. EXTREMITIES: No edema. ASSESSMENT: 1. Acute encephalopathy. a. Secondary to the effect of Tylenol No.3 that has been stopped and long separation from family. b. Continued improvement. No more periods of severe agitation or hallucinations as of 08/13. 2. Generalized weakness. a. Following a fall with fracture to the right hip and left distal radius on 06/29/2019. b. Prior to the fall, the patient was independent of all her activities of daily living. c. Weakness, improving. Walking better with a rolling walker, but only toe- touch weightbearing on the right. 3. Subtrochanteric fracture of the right hip secondary to a fall on 06/28. a. Status post cephalomedullary nail by Dr. Maikel Wong, Orthopedic surgeon on 06/30/2019. b. Pain control. c. Visit with Dr. Wong on 07/27 with x-ray showed collapse, loss of the reduction. The patient has since been on toe-touch weightbearing. Scheduled for re-evaluation one month from visit. d. Doing better, walking better as of 08/13. 4. Closed undisplaced fracture of the left distal radius. a. Secondary to fall on 06/28. b. Initially managed with fiberglass cast for four weeks. c. Cast removal on 07/27, now in wrist immobilizer. Full weightbearing. Doing very well. 5. Chronic atrial fib, rate controlled on chronic anticoagulation. 6. Status post pacemaker insertion. 7. History of congestive heart failure. a. No evidence of acute congestive heart failure. 8. Coronary artery disease. Asymptomatic. 9. Hypertension. 10. Blind in the left eye. 11. Anemia. a. Hemoglobin 9.1 on 08/10. 12. Hypothyroidism. 13. Ulcer on the left vulva healed. 14. Urinary retention. a. Catheter removed on 07/20. b. Voiding without difficulty as of 08/13. PLAN: The patient is doing much better. Said she has not had any of the severe agitation or hallucinations. Still just a little confused. She is much more pleasant. We will continue the evening dose of risperidone, we feel like this will probably be able to gradually be reduced and stopped. Think with her planning to going home, this has been very helpful and reassuring to her, tentatively planning on discharge on Sunday08/18/2019. Job ID: [id number] [facility]
[2019-08-14] MEDS: cloNIDine 0.1 MG TAB PO SCH (20:02)
[2019-08-14] MEDS: risperiDONE 0.5 MG TAB PO SCH (20:02)
[2019-08-14] MEDS: Atorvastatin Calcium 10 MG TAB PO SCH (20:03)
[2019-08-15] MEDS: Levothyroxine Sodium 75 MCG TAB PO SCH (05:31)
[2019-08-15] MEDS: Estradiol 1 MG TAB PO SCH (08:24)
[2019-08-15] MEDS: Senokot S 8.6-50 MG TAB PO SCH (08:24)
[2019-08-15] MEDS: Lisinopril 20 MG TAB PO SCH (08:25)
[2019-08-15] MEDS: Carvedilol 12.5 MG TAB PO SCH ×2 (08:25→20:23)
[2019-08-15] MEDS: Apixaban 2.5 MG TAB PO SCH ×2 (08:25→20:23)
[2019-08-15] MEDS: Calcium Carbonate 500 MG TAB PO SCH (08:26)
[2019-08-15] MEDS: Mupirocin 2% Ointment 22 GM Tube TOP SCH (08:41)
[2019-08-15] MEDS: Ferrous Sulfate 325 MG TAB PO SCH (08:41)
--- NOTE | 2019-08-15 10:25 | PRG ---
DATE OF SERVICE: 08/15/2019 SUBJECTIVE: The patient is sitting up in a chair visiting with her granddaughter with whom she lives, Zara. She has no complaint this morning. Things have been going very well. There has been no agitation or hallucination. OBJECTIVE: GENERAL: The patient is alert, appears comfortable, in no distress. VITAL SIGNS: Her temperature is 98.5, pulse 74, respirations 18, O2 saturation 96%, blood pressure 153/72. LUNGS: Clear. HEART: Irregularly irregular rhythm. EXTREMITIES: No edema. ASSESSMENT: 1. Acute encephalopathy. a. Secondary to the effect of the Tylenol No. 3 that has been stopped and long separation from family. b. Resolving. No periods of agitation or hallucination as of 08/14. 2. Generalized weakness. a. Following a fall with fracture of the right hip and the left distal radius on 06/29/2019. b. Prior to this fall, the patient was independent of her activities of daily living. c. Weakness improving. Walking better with a rolling walker, but only on toe-touch weightbearing on the right. 3. Subtrochanteric fracture of the right hip secondary to a fall on 06/28. a. Status post cephalomedullary nail by Dr. Maikel Wong, orthopedic surgeon 06/30/2019. b. Pain control. c. Visit with Dr. Wong on 07/11, with x-ray showed collapse, loss of reduction. The patient has since been on toe-touch weightbearing. Scheduled for re -evaluation on September 01. d. Doing better and walking better as of 08/14. 4. Closed undisplaced fracture of the left distal radius. a. Secondary to a fall on 06/28. b. Initially managed with fiberglass cast for 4 weeks. c. Cast removed on 07/27. Now, in a wrist immobilizer. Full weightbearing with the wrist. Doing very well. 5. Chronic atrial fibrillation, rate controlled on chronic anticoagulation. 6. Status post pacemaker insertion. 7. History of congestive heart failure. a. No evidence of acute congestive heart failure. 8. Coronary artery disease. Asymptomatic. 9. Hypertension. 10. Blind in the left eye. 11. Anemia. a. Hemoglobin 9.1 on 08/10. 12. Hypothyroidism. 13. Ulcer on the left vulva, healed. 14. Urinary retention. a. Catheter removed on 07/20. b. Voiding without difficulty as of 08/14. PLAN: The patient is doing very well. We will try reducing the risperidone to 0.25 mg at bedtime. If does well on this, maybe stop this. Visited with the patient 's granddaughter, Zara with whom she lives. Arrangements are all being made for her discharge on Sunday, 08/17. I have sent the prescription to [facility] for walker, shower chair, and bedside commode. Arrangements have been made for home health with [facility] to see her and arrange for in-home physical therapy. She will need to follow up with her head of ethics and compliance, Dr. Manuel and her primary care physician at [facility], Dr. Florez. We will continue PT and OT. Job ID: [id number] [facility]
[2019-08-15] MEDS: cloNIDine 0.1 MG TAB PO SCH (20:21)
[2019-08-15] MEDS: Atorvastatin Calcium 10 MG TAB PO SCH (20:22)
[2019-08-15] MEDS: risperiDONE 0.5 MG TAB PO SCH (20:22)
[2019-08-15] MEDS: Acetaminophen 500 MG TAB PO PRN (21:20)
[2019-08-16] MEDS: Acetaminophen 500 MG TAB PO PRN ×5 (05:47→21:20)
[2019-08-16] MEDS: Levothyroxine Sodium 75 MCG TAB PO SCH (05:48)
[2019-08-16] MEDS: Lisinopril 20 MG TAB PO SCH (08:34)
[2019-08-16] MEDS: Ferrous Sulfate 325 MG TAB PO SCH (08:34)
[2019-08-16] MEDS: Apixaban 2.5 MG TAB PO SCH ×2 (08:34→21:20)
[2019-08-16] MEDS: Senokot S 8.6-50 MG TAB PO SCH (08:34)
[2019-08-16] MEDS: Estradiol 1 MG TAB PO SCH (08:35)
[2019-08-16] MEDS: Calcium Carbonate 500 MG TAB PO SCH (08:35)
[2019-08-16] MEDS: Carvedilol 12.5 MG TAB PO SCH ×2 (08:35→21:20)
[2019-08-16] MEDS: cloNIDine 0.1 MG TAB PO SCH (21:20)
[2019-08-16] MEDS: Melatonin 3 MG TAB PO PRN (21:20)
[2019-08-16] MEDS: risperiDONE 0.5 MG TAB PO SCH (21:20)
[2019-08-16] MEDS: Atorvastatin Calcium 10 MG TAB PO SCH (21:20)
[2019-08-17] MEDS: Acetaminophen 500 MG TAB PO PRN ×4 (02:16→21:22)
[2019-08-17] MEDS: Levothyroxine Sodium 75 MCG TAB PO SCH (05:25)
[2019-08-17] MEDS: Ferrous Sulfate 325 MG TAB PO SCH (09:06)
[2019-08-17] MEDS: Calcium Carbonate 500 MG TAB PO SCH (09:07)
[2019-08-17] MEDS: Lisinopril 20 MG TAB PO SCH (09:07)
[2019-08-17] MEDS: Apixaban 2.5 MG TAB PO SCH ×2 (09:07→20:04)
[2019-08-17] MEDS: Estradiol 1 MG TAB PO SCH (09:07)
[2019-08-17] MEDS: Carvedilol 12.5 MG TAB PO SCH ×2 (09:08→20:04)
[2019-08-17] MEDS: Senokot S 8.6-50 MG TAB PO SCH (09:08)
[2019-08-17] MEDS: cloNIDine 0.1 MG TAB PO SCH (20:04)
[2019-08-17] MEDS: Atorvastatin Calcium 10 MG TAB PO SCH (20:04)
[2019-08-18] MEDS: Levothyroxine Sodium 75 MCG TAB PO SCH (05:51)
[2019-08-18] MEDS: Acetaminophen 500 MG TAB PO PRN (05:57)
[2019-08-18 07:21] VITALS: BP 165/85; TEMP 98.4
[2019-08-18] MEDS: Apixaban 2.5 MG TAB PO SCH (08:06)
[2019-08-18] MEDS: Carvedilol 12.5 MG TAB PO SCH (08:06)
[2019-08-18] MEDS: Estradiol 1 MG TAB PO SCH (08:06)
[2019-08-18] MEDS: Senokot S 8.6-50 MG TAB PO SCH (08:06)
[2019-08-18] MEDS: Calcium Carbonate 500 MG TAB PO SCH (08:06)
[2019-08-18] MEDS: Ferrous Sulfate 325 MG TAB PO SCH (08:06)
[2019-08-18] MEDS: Lisinopril 20 MG TAB PO SCH (08:06)
--- NOTE | 2019-08-18 09:00 | PRG ---
DATE OF SERVICE: 08/17/2019 SUBJECTIVE: The patient says she is feeling real good. Nurses report she slept good. She has been in good spirits. She has not had any hallucinations. She has not been agitated. She has done fine on the reduced dose of risperidone and we will stop this. OBJECTIVE: GENERAL: The patient is sitting up in a chair, smiling and talkative, and appears very comfortable. VITAL SIGNS: Her temperature is 97.7, pulse 95, respirations 18, O2 saturation 99% on room air, blood pressure 159/85. LUNGS: Clear. HEART: Irregularly irregular rhythm. EXTREMITIES: No edema. ASSESSMENT: 1. Acute encephalopathy. a. Secondary to the effect of the Tylenol No. 3 that has been stopped and also from long separation from family. b. Resolved. There has been no more agitation or hallucinations as of . 2. Generalized weakness. a. Following a fall and fracture of the right hip and left distal radius on 06/29/2019. b. Prior to the fall, the patient was independent of ADLs. c. Weakness, improving. Walking better with a rolling walker, but on toe- touch weightbearing on the right. 3. Subtrochanteric fracture of the right hip secondary to a fall on 06/28. a. Status post cephalomedullary nailing by Dr. Maikel Wong, orthopedic surgeon, on 06/30/2019. b. Pain control. c. Visit with Dr. Wong on 07/11 with x-ray showing collapse and loss of reduction. The patient since has been on toe-touch weightbearing. Scheduled for re-evaluation on September 01. d. Doing better and walking better as of 08/16. 4. Closed undisplaced fracture of the left distal radius. a. Secondary to a fall on 06/28. b. Initially managed with a fiberglass cast for 4 weeks. c. Cast removal on 07/27. Now in a wrist immobilizer. Full weightbearing with wrist, doing well. 5. Chronic atrial fibrillation, rate controlled and on chronic anticoagulation. 6. Status post pacemaker insertion. 7. History of congestive heart failure. a. No evidence of congestive heart failure. 8. Coronary artery disease, asymptomatic. 9. Hypertension. 10. Blind in the left eye. 11. Anemia. a. Hemoglobin 9.1 on 08/10. 12. Hypothyroidism. 13. Ulcer of the left vulva, healed. 14. Urinary retention. a. Catheter removal on 07/20. b. Voiding without difficulty as of 08/14. PLAN: We will stop the risperidone. Continue present care. Anticipate discharge in the morning. Job ID: [id number] [facility]
--- NOTE | 2019-08-19 12:55 | DIS ---
DATE OF ADMISSION: 07/03/2019 DATE OF DISCHARGE: 08/18/2019 FINAL DIAGNOSES: 1. Generalized weakness: a. Following a fall with fracture of the right hip and the left distal radius on 06/29/2019. b. Prior to the fall, the patient was independent of her activities of daily living. c. Weakness improving, walking better with rolling walker, but still at toe- touch weightbearing on the right. 2. Subtrochanteric fracture of the right hip secondary to a fall on 06/28. a. Status post cephalomedullary nail by Dr. Maikel Wong, orthopedic surgeon, on 06/30/2019. b. Visit with Dr. Wong on 07/12/2019, with x-ray showed collapse and loss of reduction. The patient has since been on toe-touch weightbearing. Scheduled for re-evaluation on September 01. 3. Closed undisplaced fracture of the left distal radius: a. Secondary to a fall on 06/28. b. Initially managed with fiberglass cast for four weeks. c. Cast removed on 07/27. Now on a wrist immobilizer with full weightbearing and doing very well. 4. Chronic atrial fibrillation, rate controlled and on chronic anticoagulation. 5. Status post pacemaker insertion. 6. History of congestive heart failure: a. No evidence of acute congestive heart failure. 7. Coronary artery disease, asymptomatic. 8. Hypertension. 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 10. Anemia: a. Hemoglobin 9.1 on 08/10. 11. Hypothyroidism. 12. Ulcer on the left vulva, healed. 13. Urinary retention: a. Catheter removed on 07/20. b. Voiding without difficulty as of 08/17. 14. Acute encephalopathy: a. Secondary to the effect of the Tylenol No. 3 that has been stopped and a long separation from the family. b. Resolved as of 08/17. HOSPITAL COURSE: The patient is an 89-year-old white female, who lives with her granddaughter and has been independent of her ADLs. She has a history of chronic atrial fibrillation, for which the rate has better controlled and she has been on Pradaxa. She has a pacemaker. She has a history of congestive heart failure, but no recent episode. She has coronary artery disease that is asymptomatic, hypertension, and hypothyroidism. The patient is blind in her left eye. The patient had a fall on 06/29/2019, that resulted in a subtrochanteric fracture of the right hip and an undisplaced fracture of the left distal radius. The patient was hospitalized at [facility] in [place], and on 06/30/2019, she underwent an open reduction and internal fixation of the right hip with a cephalomedullary nailing by orthopedic surgeon, Dr. Maikel Wong. She also underwent a casting of the left forearm. Her postop course was unremarkable. The patient was referred to [facility] for rehabilitation on 07/03/2019. The patient's hospital stay was one of gradual improvement. Initially, she had a lot of pain from the right hip that was managed initially with hydrocodone and then switched to tramadol for some issues of some confusion, then she was switched to tramadol and Tylenol, which seemed to work pretty well, but then too the tramadol had to be stopped due to confusion. She was then added just Tylenol No. 3 to take one every 6 hours as needed for pain. This seemed to work pretty well, but then the interval seemed to be a little bit too long. The interval was decreased to every 4 hours and with this, the patient seemed to have adequate control, but later in the course of her hospitalization, she became very confused, hallucinating, and agitated, and required lorazepam and risperidone to calm her down. Her lab work was repeated and showed no significant changes, no evidence of urinary tract infection, and it is felt that the acute encephalopathy was from the step-up on the frequency of the Tylenol No. 3 and also the long separation from her family. Her family came in and sat with her and this helped settle her and the addition of the risperidone also helped. The patient's pain was well managed with just Tylenol. Gradually, the risperidone was able to be backed off and stopped without any problem. All the agitation and hallucination resolved. The presence of the family also helped, and also planning on discharge under the care of the family also gave her hope that she would be out of here soon. She did very well with physical therapy and was progressing. She saw Dr. Wong, her orthopedic surgeon on 07/12/2019, and x-rays showed a collapse and loss of reduction. He placed her on toe-touch weightbearing and she has been on that throughout the remainder of her hospitalization. She is due to see him back on 09/01 with repeat x-rays. The left wrist healed up very well. She was left in the cast for four weeks. The cast was removed on 07/11 and the patient placed in a wrist immobilizer. During her hospitalization, early she had a little trouble swallowing and her medicines were crushed. The Pradaxa that she has been on from home could not be crushed. Consequently, she was switched to Eliquis. Her little trouble swallowing completely resolved and she has been doing fine on a regular diet. She will be placed back on the Pradaxa at home. During her hospitalization, she also had trouble with urinary retention, required a catheter for a while and then this was removed on 07/20, and she since had no trouble voiding. During the hospitalization, her TSH was elevated and her thyroid medicine was increased from 137 to 150 mcg. She will need a followup TSH in approximately a month. By 08/17 , the patient was doing very well. Her vital signs were very stable. She remained in chronic atrial fibrillation throughout her hospitalization, but had no rapid rates. Her hypertension was well controlled and she had no episodes suggestive of acute congestive failure. By 08/17, her condition improved, her family had things ready at home, and it is felt like she would do better at this point at home. She will follow up with Dr. Maikel Wong, her orthopedic surgeon on 08/31 and she will also need to follow up at some point with her broker assistant, Dr. Manuel and also with her primary care physician in a couple of weeks, Dr. Florez at [facility]. DISPOSITION: Diet; regular diet, no added salt. MEDICATIONS: 1. Tylenol 500 mg one to two every 4 hours as needed for pain. 2. Maalox Plus 30 mL every 4 hours as needed. 3. Pradaxa 150 mg b.i.d. 4. Atorvastatin 10 mg daily. 5. Dulcolax suppository 10 mg per rectum daily p.r.n. 6. Os-Suman 500 mg daily. 7. Carvedilol 12.5 mg b.i.d. 8. Clonidine 0.1 mg at bedtime. 9. Estradiol 2 mg daily. 10. Ferrous sulfate 325 mg daily. 11. Levothyroxine 150 mcg daily. 12. Lisinopril 20 mg daily. 13. Melatonin 3 mg at bedtime. 14. Pantoprazole 40 mg daily. 15. MiraLAX 17 g, 8 ounces of water daily as needed. 16. Senokot-S one tablet daily. FOLLOWUP: The patient will need to follow up with her orthopedic surgeon, Dr. Wong at [facility] on 08/31. She will need to follow up with her broker assistant, Dr. Manuel and also with her primary care physician, at [facility]. Arrangements have been made for the patient to have Home Health see her and continue in-home physical therapy with toe-touch weightbearing on the right leg. She is using a walker to stabilize her walking. Last lab on 08/10, hemoglobin and hematocrit of 9.1 and 29.2. On 08/07, sodium 134, potassium 4.8, BUN 14, creatinine 1.25, GFR 40. TSH was 10.4 on 07/04/2019. CODE STATUS: Full code. Job ID: [id number]
== END 2019-08-18 10:17 | disposition home or self-care (01) | DRG 559 ==
LOC: MADMS 15:40
PROVIDERS: ADMIT Family Medicine; ATTEND Family Medicine
DX: Z47.89 Encounter for other orthopedic aftercare (principal); G92 Toxic encephalopathy; I48.20 Chronic atrial fibrillation, unspecified; K55.1 Chronic vascular disorders of intestine; N39.0 Urinary tract infection, site not specified; S72.21XD Displaced subtrochanteric fracture of right femur, subsequent encounter for closed fracture with routine healing; I11.0 Hypertensive heart disease with heart failure; I50.9 Heart failure, unspecified; H54.62 Unqualified visual loss, left eye, normal vision right eye; I25.10 Atherosclerotic heart disease of native coronary artery without angina pectoris; Z96.1 Presence of intraocular lens; E78.00 Pure hypercholesterolemia, unspecified; D64.9 Anemia, unspecified; N76.6 Ulceration of vulva; R33.9 Retention of urine, unspecified; E03.9 Hypothyroidism, unspecified; T39.1X5A Adverse effect of 4-Aminophenol derivatives, initial encounter; Y92.239 Unspecified place in hospital as the place of occurrence of the external cause; R53.1 Weakness; N32.89 Other specified disorders of bladder; S52.502D Unspecified fracture of the lower end of left radius, subsequent encounter for closed fracture with routine healing; Z79.01 Long term (current) use of anticoagulants; Z91.81 History of falling; Z98.42 Cataract extraction status, left eye; Z98.41 Cataract extraction status, right eye; Z86.73 Personal history of transient ischemic attack (TIA), and cerebral infarction without residual deficits; Z95.0 Presence of cardiac pacemaker; Z90.710 Acquired absence of both cervix and uterus; Z91.041 Radiographic dye allergy status
CPT/HCPCS: 36415; 80048; 80053; 81001; 82565; 84443; 85007; 85014; 85018; 85025; 85027; 85049; 87070; 87077; 87086; 87186; 87205